=== PATIENT | female | born 1980 | race Caucasian/White ===

== ENCOUNTER 2020-01-03 13:34 | Emergency (ER) | payer BC, SELFPAY ==
[2020-01-03 14:03] VITALS: BP 118/64; PULSE 90; RESP 16; TEMP 37.4; O2SAT 100
--- NOTE | 2020-01-03 14:04 | ED.GENADULT ---
HPI - General Adult General Chief complaint: Upper Respiratory Infection Stated complaint: Sore throat/cough Time Seen by Provider: 01/03/20 14:15 Source: patient and RN notes reviewed Mode of arrival: ambulatory Limitations: no limitations History of Present Illness HPI narrative: This is a 39 years old female presented office for evaluation of cold symptoms for couple day. Symptoms include runny nose, cough, sore throat, and sneezing. She also reported feeling tired. She took ibuprofen for her symptoms. She concern for COVID, would like a test for it. Denies directed contact with COVID patients. Related Data Home Medications Medication Instructions Recorded Confirmed dextroamphetamine-amphetamine 20 mg PO DAILY 01/03/20 01/03/20 levothyroxine 25 mcg DAILY 01/03/20 01/03/20 Allergies Allergy/AdvReac Type Severity Reaction Status Date / Time sulfamethizole Allergy Unknown Swelling Verified 01/03/20 13:50 of Lip/Tongue/Throat sulfamethoxazole Allergy Unknown LIPS SWELL Verified 09/02/18 17:23 trimethoprim Allergy Unknown Swelling Verified 01/03/20 13:50 of Lip/Tongue/Throat Review of Systems Review of Systems: Narrative: CONSTITUTIONAL: Denies fever, chills ENT: Reports rhinorrhea, congestion, sore throat. Denies ears pain CARDIOVASCULAR: Denies chest pain, palpitation RESPIRATORY: Denies dyspnea, wheezing, cough GASTROINTESTINAL: Denies abdominal pain, nausea, vomiting, diarrhea. GENITOURINARY: Denies urinary symptoms or discharge SKIN: Denies rash MUSCULOSKELETAL: Denies acute back pain NEUROLOGIC: Denies lightheaded All other systems reviewed are negative, except as documented in HPI. [facility] Past Medical History Medical History Kidney stone induced hypertension Seborrhiasis Vulvar cyst Surgical History Surgical History H/O removal of cyst History of abdominoplasty History of back surgery x2 History of breast augmentation History of hysterectomy History of tubal ligation Hx of section x3 Family History Family History Mother Family history of rheumatoid arthritis Social History Social History Smoking status: Never smoker Alcohol intake: current Gender identity (if verbalized by the patient): Female Comments At time of signature, I agree with nursing past medical, surgical, social and family history. There is no relevant family history pertinent to the presenting complaint. Exam Narrative: Exam Narrative: GENERAL: This is a well-nourished, well-developed patient, in no apparent distress. EYES: Sclera clear/white. Vision is grossly intact. EARS: External ears normal, auditory canals clear and without drainage, TMs normal without perforation. Hearing grossly intact. NOSE: External nose normal with no obvious nasal discharge, nares without redness, no rhinorrhea. THROAT: Mucous membranes moist, posterior pharynx clear. NECK: Neck supple, non-tender without lymphadenopathy, masses or thyromegaly. CARDIOVASCULAR: Regular rate and rhythm without murmurs, gallops, or rubs. RESPIRATORY: Clear to auscultation. Breath sounds equal bilaterally. No wheezes, rales, or rhonchi. GASTROINTESTINAL: Abdomen soft, non-tender, nondistended. Bowel sounds are active. No hepato-splenomegaly, or palpable masses. No guarding. SKIN: warm, intact with no suspicious lesions or rash, good texture and turgor. NEURO: awake, alert, and oriented to person, place and time. There were no obvious focal neurologic abnormalities. Steady gait [place] Coma Scale Eye Opening: Spontaneous 4 Imtiaz Coma Scale Motor: Obeys Commands 6 Imitaz Coma Scale Verbal: Oriented 5 Course Vital Signs Vital signs: Vital Signs Temperature 99.3 F 01/03/20 14:03 Pulse Rate
== END 2020-01-03 14:43 | disposition home or self-care (01) ==
PROVIDERS: Emergency Provider Nurse Practitioner; PCP Nurse Practitioner Adult Health
DX: J06.9 Acute upper respiratory infection, unspecified (principal)
CPT/HCPCS: 99213; G0463

== ENCOUNTER 2021-09-07 13:24 | Emergency (ER) | payer OTHER, SELFPAY ==
--- NOTE | ~2021-09-07 | CT_ITS ---
EXAMINATION: CT lumbar spine wo con DATE: 09/07/2021 14:02 INDICATION: Chronic low back pain. TECHNIQUE: Computed tomography (CT) of the lumbar spine was performed without intravenous contrast. A utomated exposure control and iterative reconstruction technique were employed. The dose-length produ ct was 475.71 mGy-cm. COMPARISON: Lumbar spine radiographs 08/22/2015 FINDINGS: There is 6 degrees levocurvature of lumbar spine. There are changes of anterior and posteri or fusion procedures at L5-S1 with interbody devices and pedicle screws. There is bridging interbody bone. Vertebral body heights are normal. There is mildly decreased disc height at L3-L4. The followin g disc levels are specifically discussed: L1-L2: The disc does not extend beyond the endplate margin. There is mild bilateral facet joint osteo arthritis. There is no neural foraminal stenosis. There is no central canal stenosis. L2-L3: The disc does not extend beyond the endplate margin. There is mild bilateral facet joint osteo arthritis. There is no neural foraminal stenosis. There is no central canal stenosis. L3-L4: The disc does not extend beyond the endplate margin. There is mild bilateral facet joint osteo arthritis. There is no neural foraminal stenosis. There is no central canal stenosis. L4-L5: The disc is bulging. There is mild bilateral facet joint osteoarthritis. There is mild bilater al neural foraminal stenosis. There is no central canal stenosis. L5-S1: There is mild bilateral facet joint hypertrophy. There is mild left neural foraminal stenosis. There is mild central canal stenosis. IMPRESSION: 1. Mild lumbar spondylosis. 2. Anterior and posterior fusion procedures at L5-S1. Reviewed, dictated and finalized at location A.
[2021-09-07 13:39] VITALS: BP 134/75; PULSE 89; RESP 16; TEMP 36.5; O2SAT 100
[2021-09-07] MEDS: KETOROLAC (*BKC) 60 MG/2 ML VIAL IM (14:03)
--- NOTE | 2021-09-07 14:27 | ED.BACK ---
HPI - Back Pain/Injury General Chief Complaint: Back Pain/Injury Stated Complaint: severe back pain Time Seen by Provider: 09/07/21 13:26 Source: patient and RN notes reviewed Mode of arrival: ambulatory Limitations: no limitations History of Present Illness MD elicited complaint: back pain Pertinent past history: prior back pain Onset (ago): day(s) (2) Timing: constant Severity: moderate Pain scale (0-10): 7 Similar Symptoms Previously: Yes Quality: dull and aching Radiation: buttocks Exacerbating factors: movement Relieving factors: immobilization Associated symptoms: denies other symptoms Treatments prior to arrival: NSAIDS Work related injury: No Related Data Home Medications Medication Instructions Recorded Confirmed dextroamphetamine-amphetamine 20 mg PO DAILY 01/03/20 09/07/21 levothyroxine 25 mcg DAILY 01/03/20 09/07/21 hydroxychloroquine 200 mg PO BID 09/07/21 09/07/21 Allergies Allergy/AdvReac Type Severity Reaction Status Date / Time sulfamethizole Allergy Unknown Swelling Verified 09/07/21 13:44 of Lip/Tongue/Throat sulfamethoxazole Allergy Unknown LIPS SWELL Verified 09/07/21 13:44 trimethoprim Allergy Unknown Swelling Verified 09/07/21 13:44 of Lip/Tongue/Throat Review of Systems Review of Systems: All systems reviewed & are unremarkable except as noted in HPI and below PMFSH Past Medical History Medical History Kidney stone induced hypertension Sciatica Seborrhiasis Vulvar cyst Surgical History Surgical History H/O removal of cyst History of abdominoplasty History of back surgery x2 History of breast augmentation History of hysterectomy History of tubal ligation Hx of section x3 Family History Family History Mother Family history of rheumatoid arthritis Social History Social History Smoking status: Never smoker Alcohol intake: current Gender identity (if verbalized by the patient): Female Exam Const: General: no acute distress and alert Orientation/consciousness: patient oriented x3 Limitations: no limitations HENMT: Ears: external ears normal, TM's normal bilaterally and EAC's normal General nose exam: Normal external nose present and Normal nares present Face and sinus: normal facial exam and sinuses nontender Mouth: Yes moist mucous membranes Eyes: Conjunctivae: conjunctivae normal Pupils: Equal, round and reactive pupils present EOM: EOMs intact bilaterally Neck: Neck: normal visual inspection Chest: Chest palpation & inspection: normal inspection of the chest Resp: Effort & Inspection: normal respiratory effort Auscultation: clear to auscultation bilaterally Cardio: Rate: regular rate Rhythm: regular rhythm GI: GI Palp: Yes Soft to palpation and No Tenderness to palpation present (GI) Auscultation: normal bowel sounds : General: Yes no CVA tenderness Back/Spine/Pelvis: Back: no CVA tenderness Skin: General skin exam: normal color Neuro: General: patient oriented x3, moves all extremities, no meningeal signs, no focal motor deficits and CN's II-XI intact bilaterally Extrem: General: normal to inspection and no pedal edema Psych: Appearance: grossly normal and well kempt Mental Status: mental status grossly normal Affect: normal affect Attitude: cooperative Thought content: Yes Normal thought content present Course Course Emergency Course: Pt is stable in the ED. less painful. Reevaluation(s) Reevaluation #1: VSS Date: 09/20/21 Time: 13:47 Vital Signs Vital signs: Vital Signs Temperature 36.5 C 09/07/21 13:39 Pulse Rate 89 09/07/21 13:39 Respiratory Rate 16 09/07/21 13:39 Blood Pressure 134/75 09/07/21 13:39 Pulse Oximetry 100 09/07/21 13:39 Temp
[2021-09-07 14:50] VITALS: BP 131/87; PULSE 75; RESP 16; TEMP 37.1; O2SAT 100
== END 2021-09-07 15:07 | disposition home or self-care (01) ==
PROVIDERS: Emergency Provider Emergency Medicine; PCP Nurse Practitioner Adult Health
DX: M54.30 Sciatica, unspecified side (principal)
CPT/HCPCS: 72131; 96372; 99284; J1885

== ENCOUNTER 2021-11-08 10:22 | Emergency (ER) | payer OTHER, SELFPAY ==
--- NOTE | ~2021-11-08 | US_ITS ---
EXAMINATION: US pelvic complete w TV DATE: 11/08/2021 12:35 INDICATION: Right lower quadrant pain Comparison:No prior studies for comparison. TECHNIQUE: Multiple transabdominal and endovaginal sonographic images of the pelvis performed. FINDINGS: Uterus is surgically absent. There are right ovarian cyst, largest measuring 3.6 cm. Left o vary is surgically absent. The right ovary measures and the left ovary measures . There are small follicles in each ovary. Norm al doppler signal in both ovaries. There is no free fluid in the pelvis. There are no abnormal masses seen on either side. IMPRESSION: 1. Right ovarian cysts, largest measuring 3.6 cm. Reviewed, dictated and finalized at location B.
--- NOTE | ~2021-11-08 | CT_ITS ---
EXAMINATION: CT abdomen pelvis wo con DATE: 11/08/2021 11:08 INDICATION: Right lower quadrant abdominal pain, nausea and emesis TECHNIQUE: Computed tomography (CT) of the abdomen and pelvis was performed without intravenous contr ast. Automated exposure control and iterative reconstruction technique were employed. Exam dose: 303 .96 mGy-cm total exam DLP. COMPARISON: None. FINDINGS: Bilateral breast implants. The lung bases are clear. Normal heart size. No pericardial or p leural effusion. Hepatic steatosis. The liver, gallbladder, spleen, pancreas and bile ducts and pancreatic duct are ot herwise unremarkable. Normal morphology of the adrenal glands. No renal mass lesion or urinary tract calculus or hydroureteronephrosis. The urinary bladder is unrem arkable. Status post hysterectomy. Right ovarian enlargement Measuring up to approximately 3.4 x 5 cm, with cyst measuring up to 3.6 cm dimension. Ovarian torsion cannot be excluded. Consider pelvic ultrasound examination.. Normal appendix. There are scattered diverticula of the left colon; no CT evidence of diverticulitis. No bowel obstruction, bowel wall thickening, pneumatosis or intraperitoneal free air. Very small fat-containing umbilical hernia. Status post bilateral posterior surgical fusion at L5-S1 by pedicle screws and rods. No suspicious osteolytic or osteoblastic lesions. IMPRESSION: Right ovarian enlargement with up to 3.6 cm cyst. Consider right ovarian torsion. Pelvic ultrasound examination may be of benefit. Status post hysterectomy Diverticulosis of left colon; no evidence of diverticulitis Normal appendix Hepatic steatosis Bilateral breast implants Reviewed, dictated and finalized at Location A. Reviewed, dictated and finalized at location A. IMPRESSION: Right ovarian enlargement with up to 3.6 cm cyst. Consider right o varian torsion. Pelvic ultrasound examination may be of benefit. Status post hysterectomy Diverticulosis of left colon; no evidence of diverticulitis Normal appendix Hepatic steatosis Bilateral breast implants
[2021-11-08 10:24] VITALS: BP 140/90; PULSE 54; RESP 16; TEMP 36.4; O2SAT 100
--- NOTE | 2021-11-08 10:32 | ED.ABDPAIN ---
HPI - Abdominal Pain General Chief Complaint: Abdominal Pain Stated Complaint: RLQ pain Time Seen by Provider: 11/08/21 10:27 History of Present Illness HPI narrative: 41-year-old female presents to the emergency room with a sudden onset of right lower quadrant pain that radiates into the right flank. Patient states she does have a history of kidney stones but this feels different. Patient states walking around and moving makes the pain worse. Patient denies any urinary symptoms. Patient states the pain was associated with nausea and the inability to get comfortable. Related Data Home Medications Medication Instructions Recorded Confirmed dextroamphetamine-amphetamine ER 20 mg PO DAILY 01/03/20 09/07/21 20 mg 24hr capsule,extend release levothyroxine 25 mcg tablet 25 mcg DAILY 01/03/20 09/07/21 hydroxychloroquine 200 mg tablet 200 mg PO BID 09/07/21 09/07/21 Allergies Allergy/AdvReac Type Severity Reaction Status Date / Time sulfamethizole Allergy Unknown Swelling Verified 11/08/21 13:02 of Lip/Tongue/Throat sulfamethoxazole Allergy Unknown LIPS SWELL Verified 11/08/21 13:02 trimethoprim Allergy Unknown Swelling Verified 11/08/21 13:02 of Lip/Tongue/Throat Review of Systems Review of Systems: CONSTITUTIONAL: Denies fever, chills, or sweats. EYES: Denies visual changes, redness, or discharge. ENT: Denies rhinorrhea, congestion, sore throat, or otalgia. CARDIOVASCULAR: Denies chest pain, palpitations, or edema. RESPIRATORY: Denies cough or dyspnea. GASTROINTESTINAL: Reports abdominal pain, nausea, vomiting GENITOURINARY: Denies dysuria or hematuria. SKIN: Denies rash or itching. MUSCULOSKELETAL: Denies back pain, joint pain, or myalgia. NEUROLOGIC: Denies headache, numbness, dizziness, or weakness. PSYCHIATRIC: Denies anxiety or depression. [facility] Past Medical History Medical History Kidney stone induced hypertension Sciatica Seborrhiasis Vulvar cyst Surgical History Surgical History H/O removal of cyst History of abdominoplasty History of back surgery x2 History of breast augmentation History of hysterectomy History of tubal ligation Hx of section x3 Family History Family History Mother Family history of rheumatoid arthritis Social History Social History Smoking status: Never smoker Alcohol intake: current Gender identity (if verbalized by the patient): Female Exam Narrative: GENERAL: Well-appearing, well-nourished, and in no acute distress. HEAD: Normocephalic, atraumatic. EYES: PERRLA and EOMI. CHEST: Clear to auscultation. No respiratory distress. No wheezes rales or rhonchi HEART: Regular rate and rhythm. No murmur heard. Normal peripheral pulses. ABDOMEN: Soft, right lower quadrant tenderness, nondistended, normal active bowel sounds. No CVA tenderness. Positive heelstrike, positive psoas and obturator signs, McBurney's point tenderness EXTREMITIES: Normal range of motion. No edema. SKIN: Warm, dry, no rash. NEURO: No focal deficits. Alert and oriented x3. PSYCH: Normal mood and affect. Course Vital Signs Vital signs: Vital Signs Temperature 36.4 C L 11/08/21 10:24 Pulse Rate 54 L 11/08/21 10:24 Respiratory Rate 16 11/08/21 10:24 Blood Pressure 140/90 11/08/21 10:24 Pulse Oximetry 100 11/08/21 10:24 Temperature 36.4 C L 11/08/21 10:24 Pulse Rate 54 L 11/08/21 10:24 Respiratory Rate 16 11/08/21 10:24 Blood Pressure 140/90 11/08/21 10:24 Pulse Oximetry 100 11/08/21 10:24 MDM - Abdominal Pain MDM Narrative Medical decision making narrative: 41-year-old female presents with lower abdominal/pelvic pain with a sudden onset of this morning. Abdominal exam was without peritone
[2021-11-08] MEDS: SODIUM CHLORIDE 0.9% IV 1,000 ML 999 ML IV CONT (10:57)
[2021-11-08] MEDS: ONDANSETRON INJ 4 MG/2 ML VIAL IV PUSH (10:57)
[2021-11-08] MEDS: MORPHINE SULFATE (*CRX) 4 MG/ML INJ IV PUSH ×2 (10:57→12:36)
[2021-11-08 11:04] LABS: Basophils Percent Auto 0.6 % (0.2-1.2); Eosinophils Absolute Auto 0.1 K/mm3 (0-0.3); Eosinophils Percent Auto 0.8 % (0-4.4); Hematocrit 38.6 % (37.0-47.0); Hemoglobin 12.5 g/dL (12.0-15.0); Immature Granulocyte Absolute 0.02 K/mm3 (0.00-0.031); Immature Granulocyte Percent A 0.3 % (0-0.5); Lymphocytes Absolute Auto 1.28 K/mm3 (0.9-3.2); Lymphocytes Percent Auto 17.7 % (18.3-44.2); Mean Corpuscular HGB Conc 32.4 g/dl (32-36); Mean Corpuscular Hemoglobin 28.3 pg (26-34); Mean Corpuscular Volume 87.5 fl (80-100); Mean Platelet Volume 9.6 fl (7.4-10.4); Monocytes Absolute Auto 0.2 K/mm3 (0.1-0.6); Neutrophils Absolute Auto 5.6 K/mm3 (1.3-6.7); Neutrophils Percent Auto 77.6 % (45.5-73.1); Platelet Count Result 295 k/mm3 (150-375); Red Blood Count 4.41 M/mm3 (4.2-5.4); Red Cell Distribution Width 12.7 % (11.5-14.5); White Blood Count 7.2 K/mm3 (4.5-10.0)
[2021-11-08 11:20] LABS: Alanine Aminotransferase 21 U/L (6-35); Albumin Level 4.7 g/dL (3.5-5.1); Alkaline Phosphatase 77 U/L (38-126); Anion Gap 9 mmol/L (8-16); Aspartate Amino Transferase 29 U/L (14-36); Bilirubin,Total 0.6 mg/dL (0.2-1.3); Blood Urea Nitrogen 10 mg/dL (7-17); Calcium 8.9 mg/dL (8.4-10.2); Carbon Dioxide 23 mmol/L (22-30); Chloride 104 mmol/L (98-107); Estimated CRCL calculation 99 ml/min; Estimated Glomerular Filt Rate > 60; Glucose 147 mg/dL (65-110); Lipase 112 U/L (23-300); Potassium 3.5 mmol/L (3.4-5.0); Sodium 136 mmol/L (137-145)
--- NOTE | 2021-11-08 12:22 | PC.NURSE ---
Pt off unit to US.
[2021-11-08 12:39] VITALS: O2SAT 100
[2021-11-08 12:40] VITALS: BP 133/78; O2SAT 100
[2021-11-08 12:50] VITALS: O2SAT 100
[2021-11-08 12:58] LABS: Appearance Urine Clear (Clear); Bilirubin Urine Negative (Negative); Blood Urine Negative (Negative); Color Urine Yellow (Yellow); Glucose Urine UA Negative (Negative); Ketones Urine 3+ mg/dL (Negative); Leukocyte Esterase Ur Negative LEU/UL (Negative); Nitrate Urine Negative (Negative); Protein Urine Negative (Negative); Specific Grav Ur 1.025 (1.001-1.035); Urobilinogen Urine 0.2 mg/dL (<2.0)
[2021-11-08 13:00] VITALS: O2SAT 100
[2021-11-08 13:02] VITALS: BP 130/71; O2SAT 98
[2021-11-08 13:06] LABS: Mucus Urine Few /lpf; RBC Urine 0-2 /hpf (0-2); Squamous Epithelial Cell Urine Few /hpf (Few); WBC Urine 0-3 /hpf
[2021-11-08 13:13] LABS: Add Urine Microscopic? YES
== END 2021-11-08 13:40 | disposition home or self-care (01) ==
PROVIDERS: Family Medicine; Emergency Provider Nurse Practitioner Family; PCP Nurse Practitioner Adult Health
DX: N83.201 Unspecified ovarian cyst, right side (principal); Z87.442 Personal history of urinary calculi
CPT/HCPCS: 36415; 74176; 76830; 76856; 80053; 81001; 83690; 85025; 96361; 96374; 96375; 96376; 99284; J2270; J2405; J7030

== ENCOUNTER 2021-11-10 09:53 | Outpatient (CLI) | payer BC, SELFPAY | END 2021-11-10 09:54 | disposition home or self-care (01) | LOC: ANHSURGERY 10:00 | PROVIDERS: PCP Nurse Practitioner Adult Health; Visit Provider Obstetrics & Gynecology | DX: R10.2 Pelvic and perineal pain (principal); Z01.818 Encounter for other preprocedural examination | CPT/HCPCS: 36415; 86850; 86900; 86901 ==

== ENCOUNTER 2021-11-13 02:27 | Day surgery (SDC) | payer BC, SELFPAY ==
[2021-11-09 15:22] VITALS: BMI 23.3
--- NOTE | 2021-11-09 15:35 | PC.NURSE ---
Report to the Outpatient Waiting Room, entrance under the green pavilion located off [facility], at time 11:00 on date 11/13/21. OR Time: 1:00. - You and your visitor will be asked a series of questions to screen for COVID 19 for your protection. - Only one visitor is allowed at this time. - The patient visitor is requested to leave or wait in car when not with patient. - A mask is required within the hospital. Patients may have clear liquids (water, carbonated beverages, clear teas, apple juice) until 3 hours prior to surgery (10:00) with a maximum of 20 ounces. - No food from midnight until time of surgery Take the following medications with a SIP of water the morning of surgery: LEVOTHYROXINE, PAIN PILL (IF NEEDED) Medications to discontinue per physician: N/A Date to take last dose: N/A Please no make-up, nail samoan, hairspray, perfume, deodorant, or body powder the day of surgery. No jewelry (including any body piercings) or valuables the day of surgery, leave them at home. Please take a shower or bath the night before, or the morning of, surgery with an antibacterial soap. Wear comfortable, loose fitting clothing. - Jewelry must be removed prior to entering the operating room. Rings and piercings that are not removed may be cut off. - The hospital will not accept responsibility for valuables. - Please leave all valuables, including medications, at home the day of surgery. If you are going home after surgery, a licensed truck driver helper must drive you home. - NO public transportation without another adult. - We recommend that an adult stay with you for 24 hours following discharge. - We also recommend that you do not drive, make important decision, drink alcoholic beverages, or take any drugs that were not prescribed by your health care provider for at least 24 hours after your discharge time. Follow any additional instructions given to you from your surgeon. If you or anyone in your household have experienced Covid symptoms in the past week, please notify your surgeon or the nurse liaison at the phone number below for possible testing. Telephone instructions given to PT - CHOLO NOGUERA and asked if any additional questions and then verbalized understanding. Patient advised to call surgeon office or pre surgery nurse liaison [phone] if any additional questions.
[2021-11-13] VITALS (9 sets, daily range): BP systolic 100–137; BP diastolic 53–84; PULSE 50–95; RESP 10–16; TEMP 36.2–37.7; O2SAT 96–100
--- NOTE | 2021-11-13 06:26 | P.HP_ITS ---
H&P: HPI History of Present Illness Date/Time: 11/13/21 06:26 Chief Complaint: Right pelvic pain Narrative: this is a 41-year-old female status post hysterectomy left salpingo- oophorectomy admitted for right oophorectomy secondary to complex right ovarian cyst. Her pain is unrelenting and severe. Risks and benefits reviewed. She understands this will make her permanently menopausal and had all questions an swered concerning this issue PMFSH Past Medical History Medical History Kidney stone induced hypertension Sciatica Seborrhiasis Vulvar cyst Surgical History Surgical History H/O removal of cyst History of abdominoplasty History of back surgery x2 History of breast augmentation History of hysterectomy History of tubal ligation Hx of section x3 Family History Family History Mother Family history of rheumatoid arthritis Social History Social History Smoking status: Never smoker Alcohol intake: never Substance use: never Substance use type: does not use Living arrangements: with family Gender identity (if verbalized by the patient): Female Spiritual care concerns: No Meds Home Medications and Allergies Home Medications Medication Instructions Recorded Confirmed Type dextroamphetamine-amphetamine ER 20 mg PO DAILY 01/03/20 11/09/21 History 20 mg 24hr capsule,extend release levothyroxine 25 mcg tablet 25 mcg DAILY 01/03/20 11/09/21 History hydroxychloroquine 200 mg tablet 200 mg PO BID 09/07/21 11/09/21 History ibuprofen 800 mg tablet 800 mg PO TID #20 tabs 09/07/21 11/09/21 Rx hydrocodone 5 mg-acetaminophen 325 1 tablet PO Q8H PRN pain #15 tabs 11/08/21 11/09/21 Rx mg tablet ondansetron 4 mg disintegrating 4 mg PO Q8H #14 tabs 11/08/21 11/09/21 Rx tablet Allergies Allergy/AdvReac Type Severity Reaction Status Date / Time sulfamethizole Allergy Unknown Swelling Verified 11/09/21 15:19 of Lip/Tongue/Throat sulfamethoxazole Allergy Unknown LIPS SWELL Verified 11/09/21 15:19 trimethoprim Allergy Unknown Swelling Verified 11/09/21 15:19 of Lip/Tongue/Throat Exam Const: General: cooperative and healthy appearing Nutritional Appearance: average body habitus Orientation/consciousness: oriented to person : Speculum Exam - Cervix: Cervix absent OB/external & speculum: external exam normal Assessment and Plan Assessment and plan (1) Complex cyst of right ovary: Code(s): N83.291 - Other ovarian cyst, right side Status: Acute Plan laparoscopic right salpingo-oophorectomy
--- NOTE | 2021-11-13 06:29 | WPDHPUPDATE1 ---
History and Physical Update Update Date/Time: 11/13/21 06:29 History and Physical has been reviewed, including an updated exam of the patient. There are NO changes in the patient's condition. Risks, benefits, and alternatives have been discussed and questions answered. Patient agrees to proceed with procedure.
--- NOTE | 2021-11-13 07:33 | P.PNAN_ITS ---
Anes - Initial Pre Proc Eval Procedure: Operation Date: 11/13/21 13:00 Proposed Procedures p Laparoscopic Right Salpingo Oophorectomy - Javi Mas MD Date/Time: 11/13/21 07:33 Surgeon: Javi Mas MD Pre Op Diagnosis: right complex cyst, pelvic pain Patient Data Age: 41 Gender: F Height: 1.68 m Weight: 65.77 kg Allergies Allergy/AdvReac Type Severity Reaction Status Date / Time sulfamethizole Allergy Unknown Swelling Verified 11/09/21 15:19 of Lip/Tongue/Throat sulfamethoxazole Allergy Unknown LIPS SWELL Verified 11/09/21 15:19 trimethoprim Allergy Unknown Swelling Verified 11/09/21 15:19 of Lip/Tongue/Throat Home Medications Medication Instructions Recorded Confirmed Type dextroamphetamine-amphetamine ER 20 mg PO DAILY 01/03/20 11/09/21 History 20 mg 24hr capsule,extend release levothyroxine 25 mcg tablet 25 mcg DAILY 01/03/20 11/09/21 History hydroxychloroquine 200 mg tablet 200 mg PO BID 09/07/21 11/09/21 History ibuprofen 800 mg tablet 800 mg PO TID #20 tabs 09/07/21 11/09/21 Rx hydrocodone 5 mg-acetaminophen 325 1 tablet PO Q8H PRN pain #15 tabs 11/08/21 11/09/21 Rx mg tablet ondansetron 4 mg disintegrating 4 mg PO Q8H #14 tabs 11/08/21 11/09/21 Rx tablet Results Review: All pre-operative results and documents have been reviewed as part of the pre- operative evaluation. [facility] Past Medical History Medical History (Updated 11/13/21 @ 07:33 by Osmani Croley MD) ADHD (attention deficit hyperactivity disorder) Hypothyroid Kidney stone induced hypertension Sciatica Seborrhiasis Vulvar cyst Surgical History Surgical History H/O removal of cyst History of abdominoplasty History of back surgery x2 History of breast augmentation History of hysterectomy History of tubal ligation Hx of section x3 Family History Family History Mother Family history of rheumatoid arthritis Social History Social History Smoking status: Never smoker Alcohol intake: never Substance use: never Substance use type: does not use Living arrangements: with family Gender identity (if verbalized by the patient): Female Spiritual care concerns: No Anes - Eval Final PreProcedure Day of Procedure 11/13/21 07:33 Results Review: All pre-operative results and documents have been reviewed as part of the pre- operative evaluation. Informed Consent: The patient's anesthetic plan and its attendant risks and benefits were discussed with the patient/family/POA. Questions were solicited and answers provided to the satisfaction of the patient/family/POA.
[2021-11-13] MEDS: ACETAMINOPHEN 500 MG TABLET 1000 MG PO (12:15)
[2021-11-13] MEDS: LACTATED RINGERS 1,000 ML 30 ML IV CONT (12:25)
[2021-11-13] MEDS: KETOROLAC 15 MG/ML VIAL (*BKC) IV PUSH (12:30)
--- NOTE | 2021-11-13 12:41 | WPDANESEPPF ---
Anes - Initial Pre Proc Eval Procedure: Operation Date: 11/13/21 13:45 Proposed Procedures p Laparoscopic Right Salpingo Oophorectomy - Javi Mas MD Date/Time: 11/13/21 12:41 Surgeon: Javi Mas MD Pre Op Diagnosis: right complex cyst, pelvic pain Patient Data Age: 41 Gender: F Height: 1.68 m Weight: 65.3 kg Last Vital Signs Temp 37.7 C H 11/13/21 12:32 Pulse 86 11/13/21 12:32 Resp 16 11/13/21 12:32 BP 116/71 11/13/21 12:32 Pulse Ox 100 11/13/21 12:32 O2 Del Method Room Air 11/13/21 12:32 Allergies Allergy/AdvReac Type Severity Reaction Status Date / Time sulfamethizole Allergy Unknown Swelling Verified 11/09/21 15:19 of Lip/Tongue/Throat sulfamethoxazole Allergy Unknown LIPS SWELL Verified 11/09/21 15:19 trimethoprim Allergy Unknown Swelling Verified 11/09/21 15:19 of Lip/Tongue/Throat Home Medications Medication Instructions Recorded Confirmed Type dextroamphetamine-amphetamine ER 20 mg PO DAILY 01/03/20 11/09/21 History 20 mg 24hr capsule,extend release levothyroxine 25 mcg tablet 25 mcg DAILY 01/03/20 11/09/21 History hydroxychloroquine 200 mg tablet 200 mg PO BID 09/07/21 11/09/21 History ibuprofen 800 mg tablet 800 mg PO TID #20 tabs 09/07/21 11/09/21 Rx hydrocodone 5 mg-acetaminophen 325 1 tablet PO Q8H PRN pain #15 tabs 11/08/21 11/09/21 Rx mg tablet ondansetron 4 mg disintegrating 4 mg PO Q8H #14 tabs 11/08/21 11/09/21 Rx tablet Patient hx anesthesia problems: none Family hx anesthesia problems: none Results Review: All pre-operative results and documents have been reviewed as part of the pre-operative evaluation. [facility] Past Medical History Medical History (Updated 11/13/21 @ 07:33 by Osmani Corley MD) ADHD (attention deficit hyperactivity disorder) Hypothyroid Kidney stone induced hypertension Sciatica Seborrhiasis Vulvar cyst Surgical History Surgical History H/O removal of cyst History of abdominoplasty History of back surgery x2 History of breast augmentation History of hysterectomy History of tubal ligation Hx of section x3 Family History Family History Mother Family history of rheumatoid arthritis Social History Social History Smoking status: Never smoker Alcohol intake: never Substance use: never Substance use type: does not use Living arrangements: with family Gender identity (if verbalized by the patient): Female Spiritual care concerns: No Anes - Eval Final PreProcedure Day of Procedure 11/13/21 12:41 Patient weight: normal Heart: regular rate and rhythm Lungs: clear to auscultation Airway: Mallampati scale class 1 Neurological: alert and oriented Last oral intake: >/= 8 hours ASA classification: III Emergent: no Anesthetic plan: proceed Anesthesia type and monitoring: general ETT and standard monitoring Results Review: All pre-operative results and documents have been reviewed as part of the pre-operative evaluation. Informed Consent: The patient's anesthetic plan and its attendant risks and benefits were discussed with the patient/family/POA. Questions were solicited and answers provided to the satisfaction of the patient/family/POA.
[2021-11-13] MEDS: ceFAZolin 2 GM/D5W 50 ML 2 GM/50 ML BAG IVPB (13:40)
--- NOTE | 2021-11-13 14:35 | P.OP_ITS ---
Procedure Note - Detailed Date of Procedure 11/13/21 Pre-op Diagnosis right complex cyst, pelvic pain Post-op Diagnosis Other Procedure Performed Laparoscopic right salpingo-oophorectomy Surgeon Javi Mas MD Anesthesia General Indications Is a 41-year-old female status post hysterectomy by and left salpingo- oophorectomy with a complex right cyst Findings Absent left ovary and tube absent uterus torsion and was seen Description of Procedure The patient was prepped draped in the sterile fashion placed in dorsal lithotomy position. Under excellent general trach anesthesia weighted speculum placed in posterior vagina bladder symptoms clear urine and a weighted speculum. A sponge stick was placed to manipulate the vagina. Gloves were changed. A supraumbilical incision made the Veress needle passed in the abdomen. Filled with CO2 gas to 15mm Hg. 5mm trocar advanced in the abdomen under direct visualization seen. Patient placed in Trendelenburg suprapubic incision. The 5mm trocar advanced under direct visualization assuring no injury. A large complex right ovarian cyst consistent with torsion was noted. A right lower quadrant incision made the 8mm trocar advanced under direct visualization assuring no injury. The fallopian tube and ovary were untwisted and the infundibulopelvic structure skeletonized clamped with the LigaSure and then placed in an Endo-Catch removed through the right lower quadrant and piecemeal. Irrigation was undertaken until clear excellent hemostasis was seen. Patient after the gas was removed from the abdomen. The trocars removed and the incisions closed with 4 Monocryl and glue. Patient was awakened and went to recovery in satisfactory condition. All sponge, needle, instrument counts were correct. There were no immediate complications Estimated Blood Loss 25 Drains No Packing No Pathology Yes Complications No immediate complications Condition Stable Disposition PACU
--- NOTE | 2021-11-13 15:15 | SUR.PHASEI ---
oral airway removed at 1515
[2021-11-13] MEDS: fentaNYL CITRATE INJ (*CRX) 100 MCG/2 ML VIAL 25 MCG IV PUSH (15:31)
[2021-11-13] MEDS: oxyCODONE HCL (*CRX) 5 MG TAB IR PO (16:22)
== END 2021-11-13 16:55 | disposition home or self-care (01) ==
PROVIDERS: PCP Nurse Practitioner Adult Health; Visit Provider Obstetrics & Gynecology
PROC: (CPT 49320; principal; 2021-11-13 13:45)
DX: N83.291 Other ovarian cyst, right side (principal); R10.2 Pelvic and perineal pain; E03.9 Hypothyroidism, unspecified; F90.9 Attention-deficit hyperactivity disorder, unspecified type
CPT/HCPCS: 58661; 36415; 86850; 86900; 86901; 88305; A9270; J0690; J1100; J1885; J2250; J2405; J2704; J3010; J7120

== ENCOUNTER 2021-12-11 18:38 | Emergency (ER) | payer BC, SELFPAY ==
[2021-12-11 18:49] VITALS: BP 142/72; PULSE 95; RESP 20; TEMP 36.6; O2SAT 99
--- NOTE | 2021-12-11 19:46 | ED.SKABFB ---
HPI - Skin/Abscess/Foreign Bdy General Chief complaint: Skin/Abscess/Foreign Body <Mayra Morejon PA-C - Last Filed: 12/11/21 19:59> Stated complaint: hematoma in birthmark <KAVON Ramirez Last Filed: 12/11/21 19:59> Time Seen by Provider: 12/11/21 19:05 <KAVON Ramirez Last Filed: 12/11/21 19:59> Source: patient <KAVON Ramirez Last Filed: 12/11/21 19:59> Mode of arrival: ambulatory <KAVON Ramirez Last Filed: 12/11/21 19:59> Limitations: no limitations <KAVON Ramirez Last Filed: 12/11/21 19:59> History of Present Illness HPI narrative: This is a 41 year old female that presents to the ER for a lesion on the left cheek. Noted over the last couple of weeks. Reports she has a birthmark in the area and had a similar occurrence a couple of years ago. She had the lesion incised in the ER at that time. Reports the lesion bleeds with little irritation. Denies fever, erythema, or warmth. <KAVON Ramirez Last Filed: 12/11/21 19:59> Related Data Home medications: Home Medications Medication Instructions Recorded Confirmed dextroamphetamine-amphetamine ER 20 mg PO DAILY 01/03/20 11/09/21 20 mg 24hr capsule,extend release levothyroxine 25 mcg tablet 25 mcg DAILY 01/03/20 11/09/21 hydroxychloroquine 200 mg tablet 200 mg PO BID 09/07/21 11/09/21 <KAVON Ramirez Last Filed: 12/11/21 19:59> Allergies/Adverse reactions: Allergies Allergy/AdvReac Type Severity Reaction Status Date / Time sulfamethizole Allergy Unknown Swelling Verified 11/09/21 15:19 of Lip/Tongue/Throat sulfamethoxazole Allergy Unknown LIPS SWELL Verified 11/09/21 15:19 trimethoprim Allergy Unknown Swelling Verified 11/09/21 15:19 of Lip/Tongue/Throat <KAVON Ramirez Last Filed: 12/11/21 19:59> Review of Systems Review of Systems: CONSTITUTIONAL: Denies fever SKIN: Denies rash <Mayra Morejon PA-C - Last Filed: 12/11/21 19:59> All systems reviewed & are unremarkable except as noted in HPI and below <Mayra Morejon PA-C - Last Filed: 12/11/21 19:59> PMFSH Past Medical History Medical History: Medical History (Updated 12/12/21 @ 00:00 by Fela Ndiaye) ADHD (attention deficit hyperactivity disorder) Hypothyroid Kidney stone induced hypertension Sciatica Seborrhiasis Vulvar cyst <KAVON Ramirez Last Filed: 12/11/21 19:59> Surgical History Surgical History: Surgical History H/O removal of cyst History of abdominoplasty History of back surgery x2 History of breast augmentation History of hysterectomy History of tubal ligation Hx of section x3 <Mayra Morejon PA-C - Last Filed: 12/11/21 19:59> Family History Family History: Family History Mother Family history of rheumatoid arthritis <Mayra Morejon PA-C - Last Filed: 12/11/21 19:59> Social History Social History: Social History Smoking status: Never smoker Alcohol intake: never Substance use: never Substance use type: does not use Gender identity (if verbalized by the patient): Female Spiritual care concerns: No <KAVON Ramirez Last Filed: 12/11/21 19:59> Exam Narrative: GENERAL: Well-appearing, well-nourished, and in no acute distress. HEAD: Normocephalic, atraumatic. EYES: EOMI. EXTREMITIES: Normal range of motion. No edema. SKIN: Warm, dry. Small circular area (1cm) that appears to be a hemangioma noted in patient's birthmark to the left cheek NEURO: No focal deficits. Alert and oriented x3. PSYCH: Normal mood and affect <Mayra Morejon PA-C - Last Filed: 12/11/21 19:59> Course WATCH ASSEMBLER/PA Physician Supervision I did not see this patient but the care plan was discuss
== END 2021-12-11 20:33 | disposition home or self-care (01) ==
PROVIDERS: Emergency Provider Emergency Medicine; PCP Nurse Practitioner Adult Health
DX: Q82.5 Congenital non-neoplastic nevus (principal); D22.39 Melanocytic nevi of other parts of face; E03.9 Hypothyroidism, unspecified; F90.9 Attention-deficit hyperactivity disorder, unspecified type; Z87.442 Personal history of urinary calculi
CPT/HCPCS: 99281

== ENCOUNTER 2022-01-04 17:26 | Emergency (ER) | payer BC, SELFPAY ==
[2022-01-04 17:28] VITALS: BP 143/86; PULSE 81; RESP 18; TEMP 36.3; O2SAT 100
--- NOTE | 2022-01-04 17:51 | ED.GENADULT ---
HPI - General Adult General Chief complaint: Wound/Laceration Stated complaint: sore on face Time Seen by Provider: 01/04/22 17:41 History of Present Illness HPI narrative: this is a 41-year-old female presenting to ED due to a mass on the left side of her face. Patient has had a birthmark there from . However several weeks ago she started to get a slightly raised bump that is now having occasional bleeding. The patient has been seen here previously for this and was instructed follow up with a plastic surgeon or fundraising manager. She has made appointment is not until late February. The patient is says that the lump is interfering with her activities of daily living this is unsightly wound on her face. She denies any surrounding erythema, swelling or purulent discharge. Related Data Home Medications Medication Instructions Recorded Confirmed dextroamphetamine-amphetamine ER 20 mg PO DAILY 01/03/20 11/09/21 20 mg 24hr capsule,extend release levothyroxine 25 mcg tablet 25 mcg DAILY 01/03/20 11/09/21 hydroxychloroquine 200 mg tablet 200 mg PO BID 09/07/21 11/09/21 Allergies Allergy/AdvReac Type Severity Reaction Status Date / Time sulfamethizole Allergy Unknown Swelling Verified 11/09/21 15:19 of Lip/Tongue/Throat sulfamethoxazole Allergy Unknown LIPS SWELL Verified 11/09/21 15:19 trimethoprim Allergy Unknown Swelling Verified 11/09/21 15:19 of Lip/Tongue/Throat Review of Systems Review of Systems: CONSTITUTIONAL: Denies night sweats. EYES: No eye pain ENT: Denies rhinorrhea CARDIOVASCULAR: Denies palpitations RESPIRATORY: Denies hemoptysis GASTROINTESTINAL: Denies hematemesis GENITOURINARY: Denies hematuria. SKIN: Denies rash MUSCULOSKELETAL: Denies myalgia. NEUROLOGIC: Denies weakness. PSYCHIATRIC: Denies delusions PMFSH Past Medical History Medical History ADHD (attention deficit hyperactivity disorder) Hypothyroid Kidney stone induced hypertension Sciatica Seborrhiasis Vulvar cyst Surgical History Surgical History H/O removal of cyst History of abdominoplasty History of back surgery x2 History of breast augmentation History of hysterectomy History of tubal ligation Hx of section x3 Family History Family History Mother Family history of rheumatoid arthritis Social History Social History Smoking status: Never smoker Alcohol intake: never Substance use: never Substance use type: does not use Gender identity (if verbalized by the patient): Female Spiritual care concerns: No Exam Narrative: APPEARANCE: No apparent distress. Head atraumatic. EYES: PERRLA/EOMI, NOSE: Normal no drainage NECK: Supple, Trachea midline RESPIRATORY: CTAB, No increased work of breathing. CARDIOVASCULAR: S1S2 appreciated ABDOMINAL: Soft, nontender, nondistended, MUSCULOSKELETAl: No obvious deformities NEURO: Alert. Moving 4/4 extremities SKIN: Patient has a subcentimeter mass over her left jaw line in the center for birthmark. It has minor bleeding. There is no surrounding erythema or induration indicating infection. PSYCHIATRIC: Normal affect Course Vital Signs Vital signs: Vital Signs Temperature 97.4 F L 01/04/22 17:28 Pulse Rate 81 01/04/22 17:28 Respiratory Rate 18 01/04/22 17:28 Blood Pressure 143/86 H 01/04/22 17:28 Pulse Oximetry 100 01/04/22 17:28 Oxygen Delivery Room Air 01/04/22 17:28 Temperature 97.4 F L 01/04/22 17:28 Pulse Rate 81 01/04/22 17:28 Respiratory Rate 18 01/04/22 17:28 Blood Pressure 143/86 H 01/04/22 17:28 Pulse Oximetry 100 01/04/22 17:28 Oxygen Delivery Room Air 01/04/22 17:28 Medical Decision Making MDM Narrative Medical decision making narrative:
== END 2022-01-04 18:14 | disposition home or self-care (01) ==
LOC: ANHED 18:05
PROVIDERS: Emergency Provider Emergency Medicine; PCP Nurse Practitioner Adult Health
DX: L98.0 Pyogenic granuloma (principal); F90.9 Attention-deficit hyperactivity disorder, unspecified type; Z87.442 Personal history of urinary calculi
CPT/HCPCS: 99282

== ENCOUNTER → 2022-01-05 06:58 | Outpatient (CLI) | payer BC, SELFPAY ==
--- NOTE | ~2022-01-05 | XR_ITS ---
XR shoulder LT min 2V 01/05/2022 08:15 INDICATION: Left shoulder pain PROCEDURE: 4 views left shoulder COMPARISON: No prior studies for comparison. FINDINGS: Fracture, dislocation or subluxation is not identified. The soft tissues appear within norm al limits. No foreign bodies are identified. IMPRESSION: 1: NO ACUTE BONE OR JOINT ABNORMALITY IDENTIFIED. Reviewed, dictated and finalized at location A.
== END ==
DX: M35.9 Systemic involvement of connective tissue, unspecified (principal); Z79.899 Other long term (current) drug therapy; M25.512 Pain in left shoulder
CPT/HCPCS: 73030

== ENCOUNTER 2023-04-18 17:28 | Emergency (ER) | payer BC, SELFPAY ==
--- NOTE | 2023-04-18 17:44 | ED.ANIMALBIT ---
HPI - Animal Bite General Chief Complaint: Animal Bite Stated Complaint: dog bite Time Seen by Provider: 04/18/23 17:52 Source: patient Mode of arrival: ambulatory Limitations: no limitations History of Present Illness HPI narrative: Zee is a 42-year-old female patient presenting to the clinic today with complaints of a dog bite. She reports that this occurred 1 week ago. Has redness and mild swelling to the right index finger. States that her dog better a week ago when they were playing with a toy. Dog is up-to-date on its shots. Patient reports last tetanus was in 2018 Related Data Home Medications Medication Instructions Recorded Confirmed dextroamphetamine-amphetamine ER 20 mg PO DAILY 01/03/20 11/09/21 20 mg 24hr capsule,extend release levothyroxine 25 mcg tablet 25 mcg DAILY 01/03/20 11/09/21 hydroxychloroquine 200 mg tablet 200 mg PO BID 09/07/21 11/09/21 Allergies Allergy/AdvReac Type Severity Reaction Status Date / Time sulfamethizole Allergy Unknown Swelling Verified 11/09/21 15:19 of Lip/Tongue/Throat sulfamethoxazole Allergy Unknown LIPS SWELL Verified 11/09/21 15:19 trimethoprim Allergy Unknown Swelling Verified 11/09/21 15:19 of Lip/Tongue/Throat Review of Systems Review of Systems: Pertinent positives per HPI. Patient denies any fever, chills, rash, headache, visual changes, dizziness, cough, runny nose, sore throat, shortness of breath, chest pain, palpitations, nausea, vomiting, diarrhea, constipation, abdominal pain, or any urinary issues. PMFSH Past Medical History Medical History ADHD (attention deficit hyperactivity disorder) Hypothyroid Kidney stone induced hypertension Sciatica Seborrhiasis Vulvar cyst Surgical History Surgical History H/O removal of cyst History of abdominoplasty History of back surgery x2 History of breast augmentation History of hysterectomy History of tubal ligation Hx of section x3 Family History Family History Mother Family history of rheumatoid arthritis Social History Social History (Reviewed 04/18/23 @ 18:01 by KAI Kebede Smoking status: Never smoker Alcohol intake: never Substance use: never Substance use type: does not use Living arrangements: with family Gender identity (if verbalized by the patient): Female Spiritual care concerns: No Comments At the time of my signature, I reviewed and agree with the nursing past medical, surgical, social, and family history. There is no relevant family history pertinent to the patient complaint. Exam Narrative: General: Well-developed, well nourished, in no apparent distress Head: Normocephalic, atraumatic. Cardio: Regular rate and rhythm, s1 and s2 normal, no murmur appreciated. Resp: Clear to auscultation bilaterally, no rhonchi, rales, wheezing or rubs. Integumentary: [place], warm, and dry, close puncture wound with mild erythema, redness, and swelling of the distal right phalanx, mild tender to palpation without fluctuance Course Course Emergency Course: Portions of this record may have been created with voice recognition software. Level of Care: Express Care Visit Vital Signs Vital signs: Vital signs reviewed MDM - Animal Bite MDM Narrative Medical decision making narrative: At the time of visit patient is resting comfortably on the exam table. I suspect patient has a puncture wound infection. Prescription for Augmentin was sent to the pharmacy and supportive measures were discussed with the patient and she voiced understanding of the discharge instructions and agrees to treatment plan. Differential Diagnosis Differential diagnosis: Likely bite by animal and dog bite Discharge Plan Discharge Clinical Impression: Dog bite,
[2023-04-18 17:52] VITALS: BP 126/78; PULSE 88; RESP 18; TEMP 36.4; O2SAT 98
== END 2023-04-18 18:00 | disposition home or self-care (01) ==
PROVIDERS: Emergency Provider Nurse Practitioner Family
DX: S61.250A Open bite of right index finger without damage to nail, initial encounter (principal); L08.9 Local infection of the skin and subcutaneous tissue, unspecified; W54.0XXA Bitten by dog, initial encounter; F90.9 Attention-deficit hyperactivity disorder, unspecified type; E03.9 Hypothyroidism, unspecified
CPT/HCPCS: 99213; G0463

== ENCOUNTER 2024-07-19 12:48 | Emergency (ER) | payer BC, SELFPAY ==
--- OUTSIDE RECORDS SUMMARY | 2024-07-19 12:50 | XMS_ITS | Clinical Summary ---
Author Organization [facility] Address [address] [place] [address] Care Team Providers Care Water Gas Operator Name Role Phone Jorge Alberto Tanvir Johnsamanthadamian Primary Care Provider Source Comments [facility],non-owned Affiliates and Associated Physician Practices is amultiple site organization consisting of ambulatory clinics and hospital sitesin [place], [place], [place] and [place]. This disclosure is being madepursuant to the Care Everywhere program and may not contain all information available regarding this patient. Last updated 18.[facility] Allergies Active Allergy Reactions Criticality Noted Date Comments Sulfamethoxazole W-Trimethoprim Swelling Low 02/09/2015 Swelling of lips Morphine Nausea and/or Vomiting Low 02/09/2015 Medications * Be aware that medications may not be up to date on this document. Alwaysverify current medications with the patient. Medication Sig Dispensed Refills Start Date End Date Status Casanthranol-Docusate Sodium (STOOL SOFTENER/LAXATIVE PO) Take by mouth as needed Active ferrous sulfate 325 (65 FE) MG tablet Take 325 mg by mouth once daily Active oxyCODONE-acetaminophe n (PERCOCET) 5-325 MG tablet Take 1 Tab by mouth every 4 hours as needed 50 Tab 10/18/2016 Active diazePAM (VALIUM) 5 MG tablet Take 1 Tab by mouth 3 times daily as needed (Muscle Spasms) 30 Tab 10/18/2016 Active Social History Tobacco Use Types Packs/Day Years Used Date Smoking Tobacco: Never Smokeless Tobacco: Never Alcohol Use Standard Drinks/Week Comments Yes 0 (1 standard drink = 0.6 oz pur e alcohol) occasionally Sex and Gender Information Value Date Recorded Sex Assigned at Not on file Gender Identity Not on file Sexual Orientation Not on file Last Filed Vital Signs Vital Sign Reading Time Taken Comments Blood Pressure 105/63 10/18/2016 3:07 PM CDT Pulse 103 10/18/2016 3:07 PM CDT Temperature 37.2 C (99 F) 10/18/2016 3:07 PM CDT Respiratory Rate 18 10/18/2016 3:07 PM CDT Oxygen Saturation 100% 10/18/2016 3:07 PM CDT Inhaled Oxygen Concentration - - Weight 70.8 kg (156 lb) 10/16/2016 8:24 AM CDT Height 167.6 cm (5' 6 ) 10/16/2016 8:24 AM CDT Body Mass Index 25.18 10/16/2016 8:24 AM CDT Plan of Treatment Health Maintenance Due Date Last Done Comments LIPID TESTING 1981 MAMMOGRAM 1981 PAP SMEAR 1981 HIV SCREENING 1996 HEPATITIS C SCREENING 05/29/1999 DTAP/TDAP/TD VACCINES (1 - Tdap) 2000 HEPATITIS B VACCINE (1 of 3 - 19+ 3-dose series) 2000 COVID-19 VACCINE (1 - 2023-2 5 season) 2024 INFLUENZA VACCINE (#1) 2024 DEPRESSION SCREENING 06/03/2024 ZOSTER VACCINE (1 of 2) 2031 HIB VACCINE Aged Out No longer eligi ble based on patient's age to complete this topic HPV VACCINE Aged Out No longer eligi ble based on patient's age to complete this topic MENINGOCOCCAL (Group B) VACCINE Aged Out No longer eligible based on patient's age to complete this topic MENINGOCOCCAL VACCINE Aged Out No karl sosa eligible based on patient's age to complete this topic PNEUMOCOCCAL VACCINE Aged Out No long er eligible based on patient's age to complete this topic Medical Devices Implanted Type Area Physical Fitness Trainer Device Identifier Shelf Expiration Date Model / Serial / Lot Graft Bone Accell [id number] Dbm 10ml Ptty Implanted:Qty: 1 on 10/16/2016 by Curly Tran MD at [facility] Spine Lumbar [employer] 08/28/2017 [id number] / / [id number] Integra Shaped Strips 20cc Implanted:Qty: 1 on 10/16/2016 by Curly Tran MD at [facility] Lumbar Integra [employer] Barbara 04/30/201720 0 / / [id number] Cage 11x22 Implanted:Qty: 1 on 10/16/2016 by Curly Tran MD at [facility] Lumbar Integra [employer] Barbara [id number] / / Reduction Screw 6.5x40 Implanted:Qty: 4 on 10/16/2016 by Curly Tran MD at [facility] Lumbar [employer]gra [employer] Barbara [id number] / / Jasson 40mm Implanted:Qty: 2 on 10/16/2016 by Curly Tran MD at [facility] Lumbar [employer]gra [employer] Barbara [id number] / / Large Crossbar Implanted:Qty: 1 on 10/16/2016 by Curly Tran MD at [facility] Lumbar [employer]gra [employer] Barbara 12 / / Locking Caps Implanted:Qty: 4 on 10/16/2016 by Curly Tran MD at [facility] Lumbar [employer] Barbara / / Advance Directives Documents on File Type Date Recorded Patient Sales Training Representative Expl anation Adv Directive/Living Will/POA 10/12/2016 * Full Code (Latest Code Status on File) Date Activated Date Inactivated Comments 10/16/2016 12:43 PM 10/18/2016 5:15 PM Care Teams Water Gas Operator Relationship Specialty Start Date End Date Tanvir Azul DO PCP - General Family Medicine 10/12/16
--- OUTSIDE RECORDS SUMMARY | 2024-07-19 12:50 | XMS_ITS | Referral Summary ---
Author Organization [facility] Address [address] [place] [address] Care Team Providers Care Licensed Aircraft Maintenance Engineer Name Role Phone Jorge Alberto Tanvir Johnsamanthadamian Primary Care Provider Source Comments [facility],non-owned Affiliates and Associated Physician Practices is amultiple site organization consisting of ambulatory clinics and hospital sitesin [place], [place], [place] and [place]. This disclosure is being madepursuant to the Care Everywhere program and may not contain all information available regarding this patient. Last updated 18.[facility] Allergies Active Allergy Reactions Criticality Noted Date [...] Mass Index 25.18 10/16/2016 8:24 AM CDT Functional Status Functional Status Response Date of Assess ment Is person deaf or have serious hearing difficult y? No 10/16/2016 Is person blind or have serious difficulty seein g? No 10/16/2016 Does person have serious dif ficulty walking/climbing stairs? No 10/16/2016 Does person have difficulty dressing/bathing? No 10/16/2016 Does person have difficulty doing errands alone? No 10/16/2016 Cognitive Status Response Date of Assessm ent Does person have difficulty concentrating/remembering/making decisions? No 10/16/2016 Plan of Treatment Not on file Medical Devices Implanted Type Area Mechanical Facilities Technician Device Identifier Shelf Expiration Date Model / Serial / Lot Graft Bone Accell Evo3 Dbm 10ml Ptty Implanted:Qty: 1 on 10/16/2016 by Curly Tran MD at [facility] Spine Lumbar Integra Neurosciences 08/28/20175000- 0 / / [id number] Integra Shaped Strips 20cc Implanted:Qty: 1 on 10/16/2016 by Curly Tran MD at [facility] Spine Lumbar Integra Lifesciences Barbara 04/30/20170- 0 / / [id number] Cage 11x22 Implanted:Qty: 1 on 10/16/2016 by Curly Tran MD at [facility] Spine Lumbar Integra Lifesciences Barbara 14TA-211 / / Reduction Screw 6.5x40 Implanted:Qty: 4 on 10/16/2016 by Curly Tran MD at [facility] Lumbar Integra Lifesciences Barbara [id number] / / Jasson 40mm Implanted:Qty: 2 on 10/16/2016 by Curly Tran MD at [facility] Lumbar Integra Lifesciences Barbara 12-1040 / / Large Crossbar Implanted:Qty: 1 on 10/16/2016 by Curly Tran MD at [facility] Lumbar Integra [employer]iences Barbara 12-5 / / Locking Caps Implanted:Qty: 4 on 10/16/2016 by Curly Tran MD at [facility] Lumbar Integra Lifesciences Barbara 120 / / Advance Directives Documents on File Type Date Recorded Patient Senior Sales Engineer Expl anation Adv Directive/Living Will/POA 10/12/2016 * Full Code (Latest Code Status on File) Date Activated Date Inactivated Comments 10/16/2016 12:43 PM 10/18/2016 5:15 PM Care Teams Licensed Aircraft Maintenance Engineer Relationship Specialty Start Date End Date Tanvir Azul DO PCP - General Family Medicine 10/12/16
--- OUTSIDE RECORDS SUMMARY | 2024-07-19 12:50 | XMS_ITS | Clinical Summary ---
Author Organization [facility] Address [address] [place] [address] Care Team Providers Care Patient Care Representative Name Role Phone Tanvir Azul DO Primary Care Provider [phone] Medications LEVOTHYROXINE 25 MCG tabletIndication s:Hypothyroidism TAKE 1 TABLET BY MOUTH DAILY 90 tablet 1 9 Active CLOBETASOL 0.05 % external solutionIndicati ons:Healthcare maintenance APPLY AND GENTLY MASSAGE INTO AFFECTED TWICE DAILY 50 mL 9 Active Social History Tobacco Use Types Packs/Day Years Used Date Smoking Tobacco: Never Assessed Comments Unknown Sex and Gender Information Value Date Recorded Sex Assigned at Not on file Legal Sex Female 8:05 PM CDT Gender Identity Not on file Sexual Orientation Not on file Last Filed Vital Signs Vital Sign Reading Time Taken Comments Blood Pressure 121/78 03/31/2018 3:48 PM CDT Pulse 76 03/31/2018 3:48 PM CDT Temperature - - Respiratory Rate - - Oxygen Saturation - - Inhaled Oxygen Concentration - - Weight 68 kg (150 lb) 03/31/2018 3:48 PM CDT Height 165.1 cm (5' 5 ) 02/10/2015 3:46 PM CDT Body Mass Index 24.96 02/10/2015 3:46 PM CDT Plan of Treatment Health Maintenance Due Date Last Done Comments Cervical Cancer Screening Pa p Smear (Age 30 to 64) Every 3 Years 1981 Annual Physical 1984 Hepatitis C 1999 DTaP, Tdap and Td Vaccines ( 1 - Tdap) 2000 Hepatitis B Vaccines (1 of 3 - 19+ 3-dose series) 2000 Cervical Cancer Screening Pa p with HPV Testing (Age 30 to 64) Every 5 Years 2011 Cervical Cancer Screening with HPV 2011 Mammogram Screening 2021 COVID-19 Vaccine (2023-2 5 season) 2024 Influenza Adult (#1) 2024 HPV Vaccines Aged Out No longer eligi ble based on patient's age to complete this topic Meningococcal B Vaccine Aged Out No l onger eligible based on patient's age to complete this topic Meningococcal Vaccine Aged Out No karl sosa eligible based on patient's age to complete this topic Pneumococcal Vaccine: Pediat rics (0 to 5 Years) and At-Risk Patients (6 to 64 Years) Aged Out No longer eligible b ased on patient's age to complete this topic RSV Immunizations Under 20 Months Aged Out No longer eligible based on patient's age to complete this topic Care Teams Patient Care Representative Relationship Specialty Start Date End Date Tanvir Azul DO PCP - General 09/13/16
--- OUTSIDE RECORDS SUMMARY | 2024-07-19 12:50 | XMS_ITS | Patient Health Summary ---
Author Organization [facility] Address [address] [place] [address] Care Team Providers Care Plant Safety Leader Name Role Phone Jorge Alberto Tanvir Johnsamanthadamian Primary Care Provider Note from [facility],non-owned Affiliates and Associated Physician Practices is amultiple site organization consisting of ambulatory clinics and hospital sitesin [place], [place], [place] and [place]. This disclosure is being madepursuant to the Care Everywhere program and may not contain all information available regarding this patient. Last updated 18.[facility] Allergies * Sulfamethoxazole W-Trimethoprim(Swelling) -Low Criticality * Morphine(Nausea and/or Vomiting) -Low Criticality Medications * Be aware that medications may not be up to date on this document. Alwaysverify current medications with the patient. * Casanthranol-Docusate Sodium (STOOL SOFTENER/LAXATIVE PO) Take by mouth as needed * ferrous sulfate 325 (65 FE) MG tablet Take 325 mg by mouth once daily * oxyCODONE-acetaminophen (PERCOCET) 5-325 MG tablet(Started 10/18/2016) Take 1 Tab by mouth every 4 hours as needed * diazePAM (VALIUM) 5 MG tablet(Started 10/18/2016) Take 1 Tab by mouth 3 times daily as needed (Muscle Spasms) Social History Tobacco Use Types Packs/Day Years [...] Mass Index 25.18 10/16/2016 8:24 AM CDT Medical Devices Implanted Type Area Community Development Specialist Device Identifier Shelf Expiration Date Model / Serial / Lot Graft Bone Accell Evo3 Dbm 10ml Ptty Implanted:Qty: 1 on 10/16/2016 by Curly Tran MD at [facility] Lumbar Integra Neurosciences 08/28/2017- 0 / / [id number] Integra Shaped Strips 20cc Implanted:Qty: 1 on 10/16/2016 by Curly Tran MD at [facility] Lumbar Integra Lifesciences Barbara 04/30/2017-20 0 / / [id number] Cage 11x22 Implanted:Qty: 1 on 10/16/2016 by Curly Tran MD at [facility] Lumbar Integra Lif[employer]iences Barbara 14TA-211 / / Reduction Screw 6.5x40 Implanted:Qty: 4 on 10/16/2016 by Curly Tran MD at [facility] Lumbar Integra Lifesciences Barbara [id number] / / Jasson 40mm Implanted:Qty: 2 on 10/16/2016 by Curly Tran MD at [facility] Lumbar Integra Lifesciences [place] 120 / / Large Crossbar Implanted:Qty: 1 on 10/16/2016 by Curly Tran MD at [facility] Lumbar Integra Lifesciences Barbara / / Locking Caps Implanted:Qty: 4 on 10/16/2016 by Curly Tran MD at [facility] Spine Lumbar Buy With Fetch -9 / / Procedures * APHERESIS/TRANSFUSION ORDER(Performed 10/20/2016) * CARDIAC RHYTHM STRIP ORDER(Performed 10/20/2016) * IMAGING/RADIOLOGY/XRAY RESULTS ORDER(Performed 10/20/2016) * HGB HCT PANEL(Performed 10/18/2016) * HGB HCT PANEL(Performed 10/17/2016) * INITIATE RT BRONCHODILATOR PROTOCOL(Performed 10/16/2016) * XR LUMBAR SPINE IN OR 1VW(Performed 10/16/2016) Performed for Back pain, unspecified back location, unspecified back pain laterality, unspecified chronicity * XR LUMBAR SPINE IN OR 1VW(Performed 10/16/2016) Performed for Back pain, unspecified back location, unspecified back pain laterality, unspecified chronicity * XR LUMBAR SPINE IN OR 1VW(Performed 10/16/2016) Performed for Back pain, unspecified back location, unspecified back pain laterality, unspecified chronicity * DISCECTOMY / DECOMPRESSION FUSION SPINAL POSTERIOR(Performed 10/16/2016) Performed for Recurrent displacement of lumbar disc, DDD (degenerative disc disease), lumbar * TYPE + SCREEN PANEL(Performed 10/16/2016) * HGB HCT PANEL(Performed 10/16/2016) * BLOOD TYPE VERIFICATION(Performed 10/16/2016) * XR LUMBAR SPINE 2 OR 3VW(Performed 04/06/2015) * FL TONYA SURGERY(Performed 03/21/2015) * TYPE + SCREEN PANEL(Performed 03/21/2015) * HCG BETA BLOOD QUANTITATIVE(Performed 03/21/2015) * BASIC METABOLIC PANEL (CALCIUM TOTAL)(Performed 03/21/2015) * PT-INR [facility](Performed 03/21/2015) * PTT [facility](Performed 03/21/2015) * CBC W AUTO DIFFERENTIAL(Performed 03/21/2015) * CBC W AUTO DIFFERENTIAL(Performed 03/21/2015) * MRI LUMBAR SPINE WO CONTRAST(Performed 03/02/2015) * XR LUMBAR SPINE 2 OR 3VW(Performed 02/09/2015) Results * APHERESIS/TRANSFUSION ORDER (10/20/2016 12:41 PM CDT) Narrative 10/20/2016 12:41 PM CDT Ordered by an unspecified provider. Scanned Document NURSING - VITAL SIGN S AND ASSESSMENT * CARDIAC RHYTHM STRIP ORDER (10/20/2016 12:41 PM CDT) Narrative 10/20/2016 12:41 PM CDT Ordered by an unspecified provider. Scanned Document CARDIAC SERVICES ORD ERABLES * IMAGING/RADIOLOGY/XRAY RESULTS ORDER (10/20/2016 12:41 PM CDT) Anatomical Region Laterality Modality Other Narrative 10/20/2016 12:41 PM CDT Ordered by an unspecified provider. Scanned Document IMAGING * (ABNORMAL) HGB HCT PANEL (10/18/2016 5:51 AM CDT) Only the most recent of3 resultswithin the time period is included. [facility] Hemoglobin 9.3(L) 12.0 - 15.6 gm/dL 10/18/2016 6:22 AM CDT [facility] Hematocrit 28.4(L) 35.9 - 45.5 % 10/18/2016 6:22 AM CDT [facility] Blood BLOOD SPECIMEN / Unknown Lab Venipuncture / Unknown 10/18/2016 5:51 AM CDT 10/18/2016 6:10 AM CDT Curly Tran MD LAB - HEMATOLOGY ORD ERABLES [facility] [address] [place] [address] * XR SPINE LUMBAR SINGLE VIEW (10/16/2016 11:00 AM CDT) Only the most recent of3 resultswithin the time period is included. Anatomical Region Laterality Modality Spine Radiographic Angie ging 10/16/2016 11:3 1 AM CDT Narrative 10/16/2016 12:05 PM CDT LUMBAR SPINE PORTABLE INDICATION: Back pain Three portable lateral images of the lumbosacral spine are provided. There is posterior hardware at L5-S1 with an interbody device. Bony detail is otherwise limited. Edited by Christina Jarquin on 10/16/2016 11:50 AM Procedure Note Belia Alfredo MD - 10/16/2016 LUMBAR SPINE PORTABLE INDICATION: Back pain Three portable lateral images of the lumbosacral spine are provided. There is posterior hardware at L5-S1 with an interbody device. Bony detail is otherwise limited. Edited by Christina Jarquin on 10/16/2016 11:50 AM Curly Tran MD DIAGNOSTIC IMAGING O RDERABLES * TYPE + SCREEN PANEL (10/16/2016 8:48 AM CDT) Only the most recent of2 resultswithin the time period is included. ABO O 10/16/2016 10:29 AM CDT [facility] Rh Type Positive 10/16/2016 10:29 AM CDT [facility] Comment:History check perfor med. Retype required. Antibody Screen Negative 10/16/2016 10:29 AM CDT [facility] Blood Bank BLOOD SPECIMEN / Unknown Venipuncture / Unknown 10/16/2016 8:48 AM CDT 10/16/2016 9:01 AM CDT Curly Tran MD LAB - BLOOD BANK ORD ERABLES [facility] [address] [place] [address], [facility] [phone] * BLOOD TYPE VERIFICATION (10/16/2016 8:40 AM CDT) ABO O 10/16/2016 10:30 AM CDT [facility] Rh Type Positive 10/16/2016 10:30 AM CDT [facility] Blood Bank BLOOD SPECIMEN / Unknown Venipuncture / Unknown 10/16/2016 8:40 AM CDT 10/16/2016 9:16 AM CDT Curly Tran MD LAB - BLOOD BANK ORD ERABLES [facility] [address] [place], [place] [address] [phone] * XR LUMBAR SPINE 2 OR 3VW (04/06/2015 8:46 AM SUPERVISOR ELECTRON TUBE PROCESSING) Only the most recent of2 resultswithin the time period is included. Anatomical Region Laterality Modality Spine Other Impressions 04/06/2015 6:03 PM SUPERVISOR ELECTRON TUBE PROCESSING Impression: 1. Interval microdiscectomy at L5-S1. Report dictated by Estelle Ledesma M.D. (residential program director). This report was approved by Estelle Ledesma M.D. on 04/06/2015 4:[address] ASAD Soto M.D. have personally reviewed and interpreted this examination/study. This report was electronically signed by ASAD POMPA M.D. on 04/06/2015 6:03 PM . Narrative 04/06/2015 6:03 PM SUPERVISOR ELECTRON TUBE PROCESSING Exam: XR SPINE LUMBAR 2 OR 3 VW Date: 04/06/2015 8:46 AM History: follow up Comparison: Comparison is made with a prior study dated 02/09/2015 Findings: Alignment is normal. Vertebral body heights are normal without evidence of acute fracture. The patient is status post microdiscectomy at L5-S1. Mild intervertebral disc space narrowing is seen at L4-5 and L5-S1. Skin nayan are seen posteriorly. Procedure Note Asad Pompa MD - 08/31/2017 Exam: XR SPINE LUMBAR 2 OR 3 VW Date: 04/06/2015 8:46 AM History: follow up Comparison: Comparison is made with a prior study dated 02/09/2015 Findings: Alignment is normal. Vertebral body heights are normal without evidence ofacute fracture. The patient is status post microdiscectomy at L5-S1. Mildintervertebral disc space narrowing is seen at L4-5 and L5-S1. Skinstaples are seen posteriorly. IMPRESSION Impression: 1. Interval microdiscectomy at L5-S1. Report dictated by Estelle Ledesma M.D. (residential program director). This report was approved by Estelle Ledesma M.D. on 04/06/2015 4:[address] ASAD Soto M.D. have personally reviewed and interpreted thisexamination/study. This report was electronically signed by ASAD POMPA M.D. on04/06/2015 6:03 PM . Gabriel Mendez MD DIAGNOSTIC IMAGING O RDERABLES * FL TONYA SURGERY (03/21/2015 11:15 AM CDT) Anatomical Region Laterality Modality Other Narrative 03/21/2015 1:35 PM CDT Fluoroscopy was used for this exam. Please see the Operative report. Procedure Note Provider, MD Marii - 08/31/2017 Fluoroscopy was used for this exam. Please see the Operative report. Gabriel Mendez MD FLUOROSCOPY ORDERABL ES * PTT [facility] (03/21/2015 8:35 AM CDT) APTT 26.3 23.0 - 38.4 Seconds [facility] Comment:Suggested therapeuti c range for full dose I.V. heparin therapy for venous thromboembolism is 66.0-91.0 seconds. Blood specimen (specimen) BLOOD SPECIMEN / Unknown 03/21/2015 8:35 AM CDT 03/21/2015 8:39 AM CDT Narrative [facility] - 03/21/2015 9:03 AM CDT Is patient on Heparin, Argatroban or Dabigatran?->N Gabriel Mendez MD LAB - COAGULATION OR DERABLES [facility] [address] [phone] * PT-INR [facility] (03/21/2015 8:35 AM CDT) PT 12.9 12.1 - 14.8 Seconds [facility] INR 1.0 See Comment [facility] Comment: Suggested therapeutic range for low-intensity coumadin therapy for venous thromboembolism prophylaxis is an INR of 2.0-3.0. For high risk patients (Mitral Valve Prosthesis, Atrial Fibrillation, history of TIA/stroke), suggested prophylactic therapeutic range is an INR of 2.5-3.5. Blood specimen (specimen) BLOOD SPECIMEN / Unknown 03/21/2015 8:35 AM CDT 03/21/2015 8:39 AM CDT Narrative [facility] - 03/21/2015 9:03 AM CDT Is patient on Heparin, Argatroban or Dabigatran?->N Gabriel Mendez MD LAB - COAGULATION OR DERABLES [facility] [address] [phone] * CBC W AUTO DIFFERENTIAL (03/21/2015 8:35 AM CDT) Only the most recent of2 resultswithin the time period is included. WBC 5.4 3.5 - 10.5 10 3/uL [facility] RBC 4.49 3.90 - 5.00 10 6/uL [facility] Hemoglobin 13.0 12.0 - 15.5 g/dL [facility] Hematocrit 39.1 35.0 - 45.0 % [facility] MCV 87.1 81.0 - 97.0 fL [facility] MCH 29.0 28.0 - 34.0 pg [facility] MCHC 33.2 32.0 - 36.0 g/dL [facility] Platelet Count 249 150 - 400 10 3/uL [facility] RDW-SD 40.4 36.0 - 50.0 fL [facility] RDW-CV 12.6 11.2 - 14.8 % [facility] MPV 9.7 9.3 - 12.8 fL [facility] Neutrophils % 55.4 35.0 - 70.0 % [facility] Lymphocytes % 33.8 19.7 - 55.1 % [facility] Monocytes % 6.7 3.0 - 15.0 % [facility] Eosinophils % 3.5 0.0 - 6.0 % [facility] Basophil % 0.6 0.0 - 1.5 % [facility] Neutrophils Absolute 3.0 1.6 - 7.0 10 3/uL [facility] Lymphocyte Absolute 1.8 0.8 - 2.9 10 3/uL [facility] Monocytes Absolute 0.36 0.14 - 0.66 10 3/uL [facility] Eosinophils Absolute 0.19 0.00 - 0.22 10 3/uL [facility] Basophils Absolute 0.03 0.00 - 0.06 10 3/uL [facility] Immature Granulocytes % 0.2 0.0 - 1.0 % [facility] Blood specimen (specimen) BLOOD SPECIMEN / Unknown 03/21/2015 8:35 AM CDT 03/21/2015 8:39 AM CDT Alberto Houser DO LAB - HEMATOLOGY OR DERABLES [address] [phone] * BASIC METABOLIC PANEL (CALCIUM TOTAL) (03/21/2015 8:35 AM CDT) Pathologist [facility] BUN 11 7 - 26 mg/dL [facility] Creatinine 0.7 0.6 - 1.2 mg/dL [facility] Sodium 141 136 - 145 mmol/L [facility] Potassium 3.7 3.5 - 4.5 mmol/L [facility] Chloride 107 98 - 107 mmol/L [facility] CO2 25 22 - 29 mmol/L [facility] Glucose 99 70 - 115 mg/dL [facility] Calcium 9.1 8.4 - 10.2 mg/dL [facility] Anion Gap 13 8 - 18 [facility] BUN/Creatinine Ratio 16 7 - 23 [facility] Osmolality Calculated 277 270 - 300 mOsm/kg [facility] eGFR >60 >60 mL/min/1.7 3 m2 [facility] Blood specimen (specimen) BLOOD SPECIMEN / Unknown 03/21/2015 8:35 AM CDT 03/21/2015 8:39 AM CDT Gabriel Mendez MD LAB - CHEMISTRY [facility] [address] [phone] * HCG BETA BLOOD QUANTITATIVE (03/21/2015 8:35 AM CDT) Beta-hCG Total Quantitative <2 <5 mIU/mL [facility] Comment: HCG Numeric Result Interpretation: Non- Females: < 5 mIU/mL Post-Menopausal Females: < 7 mIU/mL Blood specimen (specimen) BLOOD SPECIMEN / Unknown 03/21/2015 8:35 AM CDT 03/21/2015 8:39 AM CDT Gabriel Mendez MD LAB - CHEMISTRY [facility] Organization Address City/State/ZIP Co de Phone Number [address] [phone] * MRI LUMBAR SPINE WO CONTRAST (03/02/2015 8:12 AM CDT) Anatomical Region Laterality Modality Spine Other Impressions 03/02/2015 8:54 AM CDT IMPRESSION: 1. Degenerative disc disease involving L3-4 through L5-S1 without significant central canal stenosis; however a predominantly left-sided disc extrusion at L5-S1 places mass effect on both the left L5 and S1 nerve roots. This report was approved by Adryan Ramsey M.D. on 03/02/2015 8:47 AM . I, Dr. OBIE BRINK M.D. have personally reviewed and interpreted this examination/study. This report was electronically signed by OBIE BRINK M.D. on 03/02/2015 8:54 AM . Narrative 03/02/2015 8:54 AM CDT EXAMINATION: Magnetic resonance imaging (MRI) of the lumbar spine without contrast HISTORY: Radiculopathy. TECHNIQUE: MRI of the lumbar spine was performed without contrast according to standard protocol. FINDINGS: Comparison is made with lumbar spine radiographs dated February 09, 2015. The alignment is normal. Vertebral bodies are normal in height without evidence of compression fractures. Marrow signal intensity is normal. The conus medullaris terminates at the level of L1-2 and the distal spinal cord signal intensity is normal. There is multilevel degenerative disc disease involving L3-4 through L5-S1 with disc desiccation, disc bulges and mild height loss, greatest at L5-S1. The soft tissues are normal. L1-L2: There is no disc bulge. There is no central canal stenosis. There is no facet osteoarthritis. There is no neural foraminal stenosis. L2-L3: There is mild disc bulge. There is no central canal stenosis. There is no facet osteoarthritis. There is no neural foraminal stenosis. L3-L4: There is diffuse disc bulge with tiny annular fissure (image 18 series 17). Mild ligamentum flavum hypertrophy is present. There is no central canal stenosis. There is no facet osteoarthritis. There is no neural foraminal stenosis. L4-L5: There is diffuse disc bulge with tiny annular fissure (image 23 series 7). Mild ligamentum flavum hypertrophy is present. There is no central canal stenosis. There is mild bilateral facet osteoarthritis. There is no neural foraminal stenosis. L5-S1: There is disc extrusion, asymmetric to the left, which results in moderate ipsilateral neural foraminal stenosis and touches the exiting L5 nerve root as well as occupying the left lateral recess of the S1 nerve root. There is no central canal stenosis. There is mild bilateral facet osteoarthritis. Procedure Note Obie Brink MD - 08/31/2017 EXAMINATION: Magnetic resonance imaging (MRI) of the lumbar spine withoutcontrast HISTORY: Radiculopathy. TECHNIQUE: MRI of the lumbar spine was performed without contrastaccording to standard protocol. FINDINGS: Comparison is made with lumbar spine radiographs dated 2014. The alignment is normal. Vertebral bodies are normal in height withoutevidence of compression fractures. Marrow signal intensity is normal. Theconus medullaris terminates at the level of L1-2 and the distal spinalcord signal intensity is normal. There is multilevel degenerative disc disease involving L3-4 through L5-S1 withdisc desiccation, disc bulges and mild height loss, greatest at L5-S1. Thesoft tissues are normal. L1-L2: There is no disc bulge. There is no central canal stenosis. Thereis no facet osteoarthritis. There is no neural foraminal stenosis. L2-L3: There is mild disc bulge. There is no central canal stenosis. Thereis no facet osteoarthritis. There is no neural foraminal stenosis. L3-L4: There is diffuse disc bulge with tiny annular fissure (image 18series 17). Mild ligamentum flavum hypertrophy is present. There is nocentral canal stenosis. There is no facet osteoarthritis. There is noneural foraminal stenosis. L4-L5: There is diffuse disc bulge with tiny annular fissure (image 23series 7). Mild ligamentum flavum hypertrophy is present. There is nocentral canal stenosis. There is mild bilateral facet osteoarthritis.There is no neural foraminal stenosis. L5-S1: There is disc extrusion, asymmetric to the left, which results inmoderate ipsilateral neural foraminal stenosis and touches the exiting [id number] root as well as occupying the left lateral recess of the S1 nerveroot. There is no central canal stenosis. There is mild bilateral facet osteoarthritis. IMPRESSION IMPRESSION: 1. Degenerative disc disease involving L3-4 through L5-S1 withoutsignificant central canal stenosis; however a predominantly left-sideddisc extrusion at L5-S1 places mass effect on both the left L5 and [id number] roots. This report was approved by Adryan Ramsey M.D. on 03/02/2015 8:47 AM . I, Dr. OBIE BRINK M.D. have personally reviewed and interpreted thisexamination/study. This report was electronically signed by OBIE BRINK M.D. on 03/02/20158:54 AM . Gabriel Mendez MD MR ORDERABLES Care Teams Plant Safety Leader Relationship Specialty Start Date End Date Tanvir Azul DO PCP - General Family Medicine 10/12/16
--- OUTSIDE RECORDS SUMMARY | 2024-07-19 12:51 | XMS_ITS | Clinical Summary ---
Author Organization [facility] Address [address] [place] [address] Care Team Providers Care Sales Promoter Name Role Phone Emily Brennan MD Primary Care Provider [phone] Allergies Active Allergy Reactions Criticality Noted Date Comments Morphine Nausea And Vomiting Low 02/09/2015 Sulfamethoxazole-Trimet hoprim Swelling Medium 02/09/2015 Swelling of lips Encounters Date Type Department Care Team Description 06/22/2024 3:45 PM BUSINESS OPERATIONS DIRECTOR Lab [facility] [address] [place] [address] from Last 3 Months Social History Tobacco Use Types Packs/Day Years Used Date Smoking Tobacco: Never Assessed Personal Safety Answer Date Recorded Getting School Help Needed Not on file 07/23 Comments No Sex and Gender Information Value Date Recorded Sex Assigned at Not on file Legal Sex Female 9:27 AM BUSINESS OPERATIONS DIRECTOR Gender Identity Not on file Sexual Orientation Not on file Last Filed Vital Signs Vital Sign Reading Time Taken Comments Blood Pressure 150/90 12/22/2021 6:45 PM CDT Pulse 82 12/22/2021 6:45 PM CDT Temperature 36.8 C (98.2 F) 12/22/2021 6:45 PM CDT Respiratory Rate 18 12/22/2021 6:45 PM CDT Oxygen Saturation 99% 12/22/2021 6:45 PM CDT Inhaled Oxygen Concentration - - Weight 67.8 kg (149 lb 7.6 oz) 12/22/2021 6:45 P M CDT Height 170.2 cm (5' 7 ) 12/22/2021 6:45 PM CDT Body Mass Index 23.41 12/22/2021 6:45 PM CDT Plan of Treatment Health Maintenance Due Date Last Done Comments Breast Cancer Screening-Mammogram 1981 Cervical Cancer Screening 1981 Depression Screening 1981 Hepatitis C Screening 1981 DTaP/Tdap/Td Vaccine (1 - Tdap) 1992 Varicella Vaccines (1 of 2 - 13+ 2-dose series) 1994 Hepatitis B Screening 1999 Regular Well Visit/Exam 18-64 1999 Influenza Vaccine (#1) 2024 HPV Vaccines Aged Out No longer eligi ble based on patient's age to complete this topic Pneumococcal vaccine <65 Aged Out No longer eligible based on patient's age to complete this topic Procedures Procedure Name Priority Date/Time Associated Diagnosis Comments FALLON-1 ANTIBODY Routine 06/22/2024 3:48 PM BUSINESS OPERATIONS DIRECTOR SCL 70 ANTIBODIES Routine 06/22/2024 3:4 8 PM BUSINESS OPERATIONS DIRECTOR DIRECTOR OF CASEWORK DEPARTMENT ANTIBODIES Routine 06/22/2024 3:48 PM BUSINESS OPERATIONS DIRECTOR DOE ANTIBODIES Routine 06/22/2024 3:48 PM BUSINESS OPERATIONS DIRECTOR KATEY ANTIBODY EVALUATION WITH REFLEX Routine 06/22/2024 3:48 PM BUSINESS OPERATIONS DIRECTOR ANTI-DOUBLE STRANDED DNA ANTIBODIES Routine 06/22/2024 3:48 PM BUSINESS OPERATIONS DIRECTOR EGFR Routine 06/22/2024 3:48 PM BUSINESS OPERATIONS DIRECTOR DIFFERENTIAL AUTO Routine 06/22/2024 3:4 8 PM BUSINESS OPERATIONS DIRECTOR RHEUMATOID FACTOR Routine 06/22/2024 3:4 8 PM BUSINESS OPERATIONS DIRECTOR CRP (ACUTE PHASE) Routine 06/22/2024 3:4 8 PM BUSINESS OPERATIONS DIRECTOR C3 COMPLEMENT Routine 06/22/2024 3:48 PM BUSINESS OPERATIONS DIRECTOR [place] SCREEN W/REFLEX KATEY+DSDNA Routine 06/22/2024 3:48 PM BUSINESS OPERATIONS DIRECTOR C4 COMPLEMENT Routine 06/22/2024 3:48 PM BUSINESS OPERATIONS DIRECTOR CREATINE KINASE (CK), TOTAL Routine 06/22/2024 3:48 PM BUSINESS OPERATIONS DIRECTOR ERYTHROCYTE SEDIMENTATION RATE Routine 06/22/2024 3:48 PM BUSINESS OPERATIONS DIRECTOR COMPREHENSIVE METABOLIC PANEL Routine 06/22/2024 3:48 PM BUSINESS OPERATIONS DIRECTOR CYCLIC CITRUL PEPTIDE ANTIBODY, IGG Routine 06/22/2024 3:48 PM BUSINESS OPERATIONS DIRECTOR CARDIOLIPIN ANTIBODY, IGG AND IGM Routine 06/22/2024 3:48 PM BUSINESS OPERATIONS DIRECTOR CBC WITH AUTO DIFFERENTIAL Routine 06/22/2024 3:48 PM BUSINESS OPERATIONS DIRECTOR SJOGRENS SYNDROME-A ANTIBODY Routine 06/22/2024 3:48 PM BUSINESS OPERATIONS DIRECTOR SJOGRENS SYNDROME-B ANTIBODY Routine 06/22/2024 3:48 PM BUSINESS OPERATIONS DIRECTOR from Last 3 Months Results * (ABNORMAL) [place] screen w/rflx KATEY+dsDNA (06/22/2024 3:48 PM BUSINESS OPERATIONS DIRECTOR) [place] Positive 1:160 Comment: Interpretive Data Normal range for [place] Qualitative Antibody = Negative. 1. [place] is performed using indirect immunofluorescence against HEp-2 cells 2. [place] titers are performed on all positive qualitative results. 3. A significantly positive [place] result is defined as a positive nuclear fluorescence at a titer of 1:80 or greater. 4. 15% of normal people above age 65 have significantly positive [place] results. 5% or less of normal people age 65 or under have significantly positive [place] results. Current interpretive data was last revised on 2020. Testing performed by: [facility], [address] [facility] [place] [address] [place], quant 1:160 titer [facility] Comment:Testing performed by : [facility], [address] [facility] [place] [address] [place], interp Speckled(A) [facility] Comment:Testing performed by : [facility], [address] [place]., [address] Blood 06/22/2024 3:48 PM BUSINESS OPERATIONS DIRECTOR 06/22/2024 11:01 PM BUSINESS OPERATIONS DIRECTOR Result Boy Brennan MD LAB BLOOD ORDERABLES Final Resul t Performing Organization Address [facility] de Phone Number [facility] [address] Department [place] [address] * Anti-double stranded DNA abs (06/22/2024 3:48 PM BUSINESS OPERATIONS DIRECTOR) dsDNA Ab 1.0 <=4.0 IUnits/mL Comment: Interpretive Data Negative: < or = 4 IUnits/mL Indeterminate: 5 - 9 IUnits/mL Positive: > or = 10 IUnits/mL Current interpretive data was last revised on 2016. Testing performed by: [facility], [address] [place] [address]., [id number] Blood 06/22/2024 3:48 PM BUSINESS OPERATIONS DIRECTOR 06/22/2024 11:01 PM BUSINESS OPERATIONS DIRECTOR Result Boy Brennan MD LAB BLOOD ORDERABLES Final Resul t Performing Organization Address [facility] de Phone Number [facility] [address] Department [place] [address] * SCL 70 abs (06/22/2024 3:48 PM BUSINESS OPERATIONS DIRECTOR) Anti-Scl70, IgG <0.2 <=0.9 Ab Index Comment: Interpretive Data Negative: < 1.0 Ab Index Positive: > or = 1.0 Ab Index Current interpretive data was last revised on 2016. Testing performed by: [facility], [address] [place]., [address] Blood 06/22/2024 3:48 PM BUSINESS OPERATIONS DIRECTOR 06/22/2024 11:01 PM BUSINESS OPERATIONS DIRECTOR us Emily Brennan MD LAB BLOOD ORDERABLES Final Resul t Performing Organization Address [facility] Co de Phone Number [facility] [address] Department of Laboratories [place], [place] [id number] * eGFR (06/22/2024 3:48 PM BUSINESS OPERATIONS DIRECTOR) Pathologist [facility] Department eGFR >90 >=60 mL/min/1. 73 m2 Comment: Interpretive Data Reference Interval Normal >/= 90 mL/min/1.73m2 Mildly decreased* 60 - 89 mL/min/1.73m2 Mildly to moderately decreased 45 - 59 mL/min/1.73m2 Moderately to severely decreased 30 - 44 mL/min/1.73m2 Severely decreased 15 - 29 mL/min/1.73m2 Kidney Failure < 15 mL/min/1.73m2 *Relative to young adult level Estimated glomerular filtration rate is determined by the 2020 CKD-EPI equation recommended by the National Kidney Foundation (A Unifying Approach to GFR Estimation: Recommendations of the NKF-ASK Task Force on Reassessing the Inclusion of Race in Diagnosing Kidney Disease, JASN 2020). The CKD-EPI equation should not be used for patients with unstable renal function and has not been validated in children and those over 70. Current interpretive data was last reviewed 2021. Blood 06/22/2024 3:48 PM BUSINESS OPERATIONS DIRECTOR 06/22/2024 7:02 PM BUSINESS OPERATIONS DIRECTOR us Emily Brennan MD LAB BLOOD ORDERABLES Final Resul t Performing Organization Address [facility] Co de Phone Number [facility] [address] Department of Laboratories [place], [place] [id number] * Differential, auto (06/22/2024 3:48 PM BUSINESS OPERATIONS DIRECTOR) Pathologist [facility] Department Neutrophil abs 2.7 1.5 - 6.5 K/cumm Imm gran abs 0.0 0.0 - 0.1 K/cumm [facility] Lymphocyte abs 2.0 0.8 - 3.3 K/cumm [facility] Monocyte abs 0.3 0.2 - 0.8 K/cumm [facility] Eosinophil abs 0.2 0.0 - 0.5 K/cumm [facility] Basophil abs 0.0 0.0 - 0.1 K/cumm [facility] Neutrophil pct 52.5 % [facility] Comment: Interpretive Data Percent cell count reference ranges are not reported, since discordance with absolute values may lead to misinterpretation of CBC data. Current Interpretive Data was last revised on 2017. Imm gran pct 0.2 % [facility] Comment: Interpretive Data Percent cell count reference ranges are not reported, since discordance with absolute values may lead to misinterpretation of CBC data. Current Interpretive Data was last revised on 2017. Lymphocyte pct 38.5 % [facility] Comment: Interpretive Data Percent cell count reference ranges are not reported, since discordance with absolute values may lead to misinterpretation of CBC data. Current Interpretive Data was last revised on 2017. Monocyte pct 5.1 % [facility] Comment: Interpretive Data Percent cell count reference ranges are not reported, since discordance with absolute values may lead to misinterpretation of CBC data. Current Interpretive Data was last revised on 2017. Eosinophil pct 3.1 % [facility] Comment: Interpretive Data Percent cell count reference ranges are not reported, since discordance with absolute values may lead to misinterpretation of CBC data. Current Interpretive Data was last revised on 2017. Basophil pct 0.6 % [facility] Comment: Interpretive Data Percent cell count reference ranges are not reported, since discordance with absolute values may lead to misinterpretation of CBC data. Current Interpretive Data was last revised on 2017. Blood 06/22/2024 3:48 PM BUSINESS OPERATIONS DIRECTOR 06/22/2024 7:03 PM BUSINESS OPERATIONS DIRECTOR us Emily Brennan MD LAB BLOOD ORDERABLES Final Resul t [facility] [address] Department [place] [address] * Nader abs (06/22/2024 3:48 PM BUSINESS OPERATIONS DIRECTOR) Anti-KATEY, SM <0.2 <=0.9 Ab Index Comment: Interpretive Data Negative: < 1.0 Ab Index Positive: > or = 1.0 Ab Index Current interpretive data was last revised on 2016. Testing performed by: [facility], [address] [place]., [address] Blood 06/22/2024 3:48 PM BUSINESS OPERATIONS DIRECTOR 06/22/2024 11:01 PM BUSINESS OPERATIONS DIRECTOR us Emily Brnenan MD LAB BLOOD ORDERABLES Final Resul t Performing Organization Address [facility] Co de Phone Number [facility] [address] [employer] [place], [place] [id number] * DIRECTOR OF CASEWORK DEPARTMENT abs (06/22/2024 3:48 PM BUSINESS OPERATIONS DIRECTOR) DIRECTOR OF CASEWORK DEPARTMENT ab 0.7 <=0.9 Ab Index Comment: Interpretive Data Negative: < 1.0 Ab Index Positive: > or = 1.0 Ab Index Current interpretive data was last revised on 2016. Testing performed by: [facility], [address] [facility], [place]., [address] Blood 06/22/2024 3:48 PM BUSINESS OPERATIONS DIRECTOR 06/22/2024 11:01 PM BUSINESS OPERATIONS DIRECTOR us Emily Brennan MD LAB BLOOD ORDERABLES Final Resul t Performing Organization Address [facility] Co de Phone Number [facility] [address] [facility] [place] [address] * C4 complement (06/22/2024 3:48 PM BUSINESS OPERATIONS DIRECTOR) Complement C4 25 10 - 40 mg/dL Blood 06/22/2024 3:48 PM BUSINESS OPERATIONS DIRECTOR 06/22/2024 7:02 PM BUSINESS OPERATIONS DIRECTOR us Emily Brennan MD LAB BLOOD ORDERABLES Final Resul t [facility] [address] [facility] [place] [address] * (ABNORMAL) KATEY ab eval w/reflex (06/22/2024 3:48 PM BUSINESS OPERATIONS DIRECTOR) KATEY ab Positive( A) Negative Comment: Interpretive Data Positive Screens will be reflexed to specific testing for Antibodies against the following antigens: Fallon-1 Ab, DIRECTOR OF CASEWORK DEPARTMENT Ab, Scl-70 Ab, Doe Ab, SS-A/Ro Ab, and SS- B/La Ab. Further testing for dsDNA, Centromere, or Ribosomal P antibodies is suggested in patient with a positive screen and negative specific antibodies. Current interpretive data was last revised on 2022. Testing performed by: [facility], [address] [place] [address]., [id number] Blood 06/22/2024 3:48 PM BUSINESS OPERATIONS DIRECTOR 06/22/2024 11:01 PM BUSINESS OPERATIONS DIRECTOR us Emily Brennan MD LAB BLOOD ORDERABLES Final Resul t Performing Organization Address [facility] Co de Phone Number [facility] [address] [facility] [place] [address] * Fallon-1 antibody (06/22/2024 3:48 PM BUSINESS OPERATIONS DIRECTOR) Fallon 1 Antibody, IgG <0.2 <=0.9 Ab Index Comment: Interpretive Data Negative: < 1.0 Ab Index Positive: > or = 1.0 Ab Index Current interpretive data was last revised on 2016. Testing performed by: [facility], [address] [place] [address]., [address] Blood 06/22/2024 3:48 PM BUSINESS OPERATIONS DIRECTOR 06/22/2024 11:01 PM BUSINESS OPERATIONS DIRECTOR us Emily Brennan MD LAB BLOOD ORDERABLES Final Resul t [facility] [address] Department [place] [address] * (ABNORMAL) CBC with auto differential (06/22/2024 3:48 PM BUSINESS OPERATIONS DIRECTOR) [facility] WBC 5.1 3.8 - 9.9 K/cumm Hgb 12.6 11.9 - 15.5 g/dL [facility] Hct 39.7 35.6 - 45.5 % [facility] Plt 255 150 - 400 K/cumm [facility] MPV 10.2 9.1 - 12.3 fL [facility] RBC 4.46 3.90 - 5.20 M/cumm [facility] MCV 89.0 81.3 - 96.4 fL [facility] MCH 28.3 27.1 - 33.3 pg [facility] MCHC 31.7(L) 32.3 - 35.7 g/dL [facility] RDW CV 13.0 11.1 - 14.9 % [facility] RDW SD 42.5 35.7 - 48.1 fL [facility] NRBC abs 0.00 0.00 - 0.01 K/cumm [facility] Blood 06/22/2024 3:48 PM BUSINESS OPERATIONS DIRECTOR 06/22/2024 7:03 PM BUSINESS OPERATIONS DIRECTOR us Emily Brennan MD LAB BLOOD ORDERABLES Final Resul t [facility] [address] Department [place] [address] * Cyclic citrul peptide antibody, IgG (06/22/2024 3:48 PM BUSINESS OPERATIONS DIRECTOR) [facility] CCP Ab <0.5 <=2.9 units/mL Comment: Interpretive data Negative: <3 units/mL Positive: > or equal to 3 units/mL Current interpretive data was last revised on 2016. Testing performed by: [facility], [address] [facility], [place]., [address] Blood 06/22/2024 3:48 PM BUSINESS OPERATIONS DIRECTOR 06/22/2024 10:58 PM BUSINESS OPERATIONS DIRECTOR us Emily Brennan MD LAB BLOOD ORDERABLES Final Resul t [facility] [address] Department [place] [address] * Cardiolipin antibody, IgG and IgM (06/22/2024 3:48 PM BUSINESS OPERATIONS DIRECTOR) Cardiolipin, IgG <1.6 <=19.9 GPL U/mL Comment: Interpretive Data Negative: <20 GPL U/mL Positive: > or = 20 GPL U/mL Anticardiolipin antibodies are associated with certain clinical events including unexplained arterial and venous thromboemboli, and unexplained morbidity. However, detection of low levels of anticardiolipin antibodies occurs in both healthy individuals and patients with co-morbidities not associated with the antiphospholipid antibody (APA) syndrome including inflammatory and infectious conditions. In order to improve specificity, the International Congress on Antiphospholipid Antibodies recommends ACL antibodies of IgG or IgM isotype present in medium or high titer (e.g. > 40 GPL, or >the 99th percentile), on two or more occasions, at least 12 weeks apart, to support a diagnosis of antiphospholipid syndrome. The cutoff for this assay was developed from data based on the 99th percentile. In addition, the International Congress on Antiphospholipid Antibodies does not recommend testing for IgA YULISSA. These results were obtained with the dineout 2200 System. Cardiolipin IgG values obtained with different manufacturers' assay methods may not be used interchangeably. Current interpretive data was last revised on 2016. Testing performed by: [facility], [address] [place]., [address] Cardiolipin, IgM 0.5 <=19.9 MPL U/mL [facility] Comment: Interpretive Data Negative: <20 MPL U/mL Positive: > or = 20 MPL U/mL Anticardiolipin antibodies are associated with certain clinical events including unexplained arterial and venous thromboemboli, and unexplained morbidity. However, detection of low levels of anticardiolipin antibodies occurs in both healthy individuals and patients with co-morbidities not associated with the antiphospholipid antibody (APA) syndrome including inflammatory and infectious conditions. In order to improve specificity, the International Congress on Antiphospholipid Antibodies recommends ACL antibodies of IgG or IgM isotype present in medium or high titer (e.g. > 40 MPL, or >the 99th percentile), on two or more occasions, at least 12 weeks apart, to support a diagnosis of antiphospholipid syndrome. The cutoff for this assay was developed from data based on the 99th percentile. In addition, the International Congress on Antiphospholipid Antibodies does not recommend testing for IgA YULISSA. The ACL IgM test can produce false positive results due to cross-reactivity with Rheumatoid factor, dsDNA or certain infectious disease antibodies. These results were obtained with the dineout 2200 System. Cardiolipin IgM values obtained with different manufacturers' assay methods may not be used interchangeably. Current interpretive data was last revised on 2016. Testing performed by: [facility], [address] [place] [address]., [id number] Blood 06/22/2024 3:48 PM BUSINESS OPERATIONS DIRECTOR 06/22/2024 11:01 PM BUSINESS OPERATIONS DIRECTOR us Emily Brennan MD LAB BLOOD ORDERABLES Final Resul t Performing Organization Address [facility]/ZIP Co de Phone Number [facility] [address] [place] [place] [address] * (ABNORMAL) Sjogren's syndrome B ab (06/22/2024 3:48 PM BUSINESS OPERATIONS DIRECTOR) Anti-KATEY, SS-B 1.2(H) <=0.9 Ab Index Comment: Interpretive Data Negative: < 1.0 Ab Index Positive: > or = 1.0 Ab Index Current interpretive data was last revised on 2016. Testing performed by: [facility], [address] [place] [address]., [address] Blood 06/22/2024 3:48 PM BUSINESS OPERATIONS DIRECTOR 06/22/2024 10:58 PM BUSINESS OPERATIONS DIRECTOR us Emily Brennan MD LAB BLOOD ORDERABLES Final Resul t Performing Organization Address City/[facility]/ZIP Co de Phone Number [facility] [address] [place] [address] * (ABNORMAL) Sjogren's syndrome A ab (06/22/2024 3:48 PM BUSINESS OPERATIONS DIRECTOR) Anti-KATEY, SS-A >8.0(H) <=0.9 Ab Index Comment: Interpretive Data Negative: < 1.0 Ab Index Positive: > or = 1.0 Ab Index Current interpretive data was last revised on 2016. Testing performed by: [facility], [address] [place]., [address] Blood 06/22/2024 3:48 PM BUSINESS OPERATIONS DIRECTOR 06/22/2024 10:58 PM BUSINESS OPERATIONS DIRECTOR us Emily Brennan MD LAB BLOOD ORDERABLES Final Resul t Performing Organization Address [facility] Co de Phone Number [facility] [address] [facility] [place] [address] * Erythrocyte sedimentation rate (06/22/2024 3:48 PM BUSINESS OPERATIONS DIRECTOR) Pathologist [facility] Erythrocyte sedimentation rate 13 1 - 20 mm/hr Blood 06/22/2024 3:48 PM BUSINESS OPERATIONS DIRECTOR 06/22/2024 7:03 PM BUSINESS OPERATIONS DIRECTOR Result Boy Brennan MD LAB BLOOD ORDERABLES Final Resul t Performing Organization Address [facility] Co de Phone Number [facility] [address] [facility] [place] [address] * Rheumatoid factor (06/22/2024 3:48 PM BUSINESS OPERATIONS DIRECTOR) Rheumatoid factor, quant <10 <=15 IUnits/mL Blood 06/22/2024 3:48 PM BUSINESS OPERATIONS DIRECTOR 06/22/2024 7:02 PM BUSINESS OPERATIONS DIRECTOR Result Boy Brennan MD LAB BLOOD ORDERABLES Final Resul t Performing Organization Address [facility] Co de Phone Number [facility] [address] Department [place] [address] * C3 complement (06/22/2024 3:48 PM BUSINESS OPERATIONS DIRECTOR) [facility] Complement C3 141 90 - 180 mg/dL Blood 06/22/2024 3:48 PM BUSINESS OPERATIONS DIRECTOR 06/22/2024 7:02 PM BUSINESS OPERATIONS DIRECTOR us Emily Brennan MD LAB BLOOD ORDERABLES Final Resul t Performing Organization Address City/[facility]/ZIP Co de Phone Number [facility] [address] Department [place] [address] * CRP (acute phase) (06/22/2024 3:48 PM BUSINESS OPERATIONS DIRECTOR) [facility] CRP <3.0 <=10.0 mg/L Blood 06/22/2024 3:48 PM BUSINESS OPERATIONS DIRECTOR 06/22/2024 7:02 PM BUSINESS OPERATIONS DIRECTOR us Emily Brennan MD LAB BLOOD ORDERABLES Final Resul t Performing Organization Address [facility] Co de Phone Number [facility] [address] Department [place] [address] * Creatine kinase (CK), total (06/22/2024 3:48 PM BUSINESS OPERATIONS DIRECTOR) Pathologist [facility] CK 41 30 - 200 Units/L Blood 06/22/2024 3:48 PM BUSINESS OPERATIONS DIRECTOR 06/22/2024 7:02 PM BUSINESS OPERATIONS DIRECTOR Result Pending Sale To [facility] us Emily Brennan MD LAB BLOOD ORDERABLES Final Resul t Performing Organization Address [facility] Co de Phone Number [facility] [address] [place] [address] * Comprehensive metabolic panel (06/22/2024 3:48 PM BUSINESS OPERATIONS DIRECTOR) [facility] Sodium 142 135 - 145 mmol/L Potassium, pl 3.4 3.3 - 4.9 mmol/L [facility] Chloride 103 97 - 110 mmol/L [facility] CO2 27 22 - 32 mmol/L [facility] Anion gap 12 2 - 15 mmol/L [facility] BUN 7 6 - 25 mg/dL [facility] Creatinine 0.76 0.60 - 1.10 mg/dL [facility] Glucose 77 70 - 199 mg/dL [facility] Comment: Interpretive Data Fasting glucose >/= 126 mg/dl is diagnostic for diabetes. Fasting is defined as no caloric intake for at least 8 hours. Fasting glucose between 100 mg/dl to 125 mg/dl is diagnostic of prediabetes. In a patient with classic symptoms of hyperglycemia or hyperglycemic crisis, a random glucose >/= 200 mg/dl is diagnostic for diabetes. In the absence of unequivocal hyperglycemia, results should be confirmed by repeat testing. The classification and Diagnosis of Diabetes Diabetes Care 202; 46: S19-S40. Current interpretive data was last revised 2022. Calcium 9.4 8.5 - 10.3 mg/dL [facility] Bilirubin, total 0.3 0.1 - 1.2 mg/dL [facility] Protein, pl 7.2 6.5 - 8.5 g/dL [facility] Albumin 4.6 3.5 - 5.0 g/dL [facility] Alk phos 90 40 - 130 Units/L [facility] ALT 16 7 - 45 Units/L [facility] AST 27 10 - 45 Units/L [facility] Blood 06/22/2024 3:48 PM BUSINESS OPERATIONS DIRECTOR 06/22/2024 7:02 PM BUSINESS OPERATIONS DIRECTOR us Emily Brennan MD LAB BLOOD ORDERABLES Final Resul t [facility] [address] Department [place] [address] from Last 3 Months Insurance [facility] CHOICE OOS ANTHEM ACCESS Care Teams Sales Promoter Relationship Specialty Start Date End Date Emily Brennan MD PCP - General Rheumatology 04/04/21
--- OUTSIDE RECORDS SUMMARY | 2024-07-19 12:51 | XMS_ITS | Referral Summary ---
Author Organization [facility] Address [address] [place] [address] Care Team Providers Care Yarn Conditioner Name Role Phone Emily Brennan MD Primary Care Provider Encounters Date Type Department Care Team Description 06/22/2024 3:45 PM CROCHET BEADER Lab [facility] [address] [place] [address] from Last 3 Months Allergies Active Allergy Reactions Criticality Noted Date Comments Morphine Nausea And Vomiting Low 02/09/2015 Sulfamethoxazole-Trimet hoprim Swelling Medium 02/09/2015 Swelling of lips Social History Tobacco Use Types Packs/Day Years Used Date Smoking Tobacco: Never Assessed Personal Safety Answer Date Recorded Getting School Help Needed Not on file 07/23 Comments No Sex and Gender Information Value Date Recorded Sex Assigned at Not on file Legal Sex Female 9:27 AM CROCHET BEADER Gender Identity Not on file Sexual Orientation [...] 12/22/2021 6:45 PM CDT Plan of Treatment Not on file Procedures Procedure Name Priority Date/Time Associated Diagnosis Comments FALLON-1 ANTIBODY Routine 06/22/2024 3:48 PM CROCHET BEADER SCL 70 ANTIBODIES Routine 06/22/2024 3:4 8 PM CROCHET BEADER SPLUNK ARCHITECT ANTIBODIES Routine 06/22/2024 3:48 PM CROCHET BEADER DOE ANTIBODIES Routine 06/22/2024 3:48 PM CROCHET BEADER KATEY ANTIBODY EVALUATION WITH REFLEX Routine 06/22/2024 3:48 PM CROCHET BEADER ANTI-DOUBLE STRANDED DNA ANTIBODIES Routine 06/22/2024 3:48 PM CROCHET BEADER EGFR Routine 06/22/2024 3:48 PM CROCHET BEADER DIFFERENTIAL AUTO Routine 06/22/2024 3:4 8 PM CROCHET BEADER RHEUMATOID FACTOR Routine 06/22/2024 3:4 8 PM CROCHET BEADER CRP (ACUTE PHASE) Routine 06/22/2024 3:4 8 PM CROCHET BEADER C3 COMPLEMENT Routine 06/22/2024 3:48 PM CROCHET BEADER [place] SCREEN W/REFLEX KATEY+DSDNA Routine 06/22/2024 3:48 PM CROCHET BEADER C4 COMPLEMENT Routine 06/22/2024 3:48 PM CROCHET BEADER CREATINE KINASE (CK), TOTAL Routine 06/22/2024 3:48 PM CROCHET BEADER ERYTHROCYTE SEDIMENTATION RATE Routine 06/22/2024 3:48 PM CROCHET BEADER COMPREHENSIVE METABOLIC PANEL Routine 06/22/2024 3:48 PM CROCHET BEADER CYCLIC CITRUL PEPTIDE ANTIBODY, IGG Routine 06/22/2024 3:48 PM CROCHET BEADER CARDIOLIPIN ANTIBODY, IGG AND IGM Routine 06/22/2024 3:48 PM CROCHET BEADER CBC WITH AUTO DIFFERENTIAL Routine 06/22/2024 3:48 PM CROCHET BEADER SJOGRENS SYNDROME-A ANTIBODY Routine 06/22/2024 3:48 PM CROCHET BEADER SJOGRENS SYNDROME-B ANTIBODY Routine 06/22/2024 3:48 PM CROCHET BEADER from Last 3 Months Results * (ABNORMAL) [place] screen w/rflx KATEY+dsDNA (06/22/2024 3:48 PM CROCHET BEADER) [place] Positive 1:160 Comment: Interpretive Data Normal [...] last revised on 2020. Testing performed by: [facility], [address] [place] [address]., [address] [place], quant 1:160 titer [facility] Comment:Testing performed by : [facility], [address] [place] [address]., [id number] [place], interp Speckled(A) [facility] Comment:Testing performed by : [facility], [address] [place] [address]., [id number] Blood 06/22/2024 3:48 PM CROCHET BEADER 06/22/2024 11:01 PM CROCHET BEADER us Emily Brennan MD LAB BLOOD ORDERABLES Final Resul t [facility] [address] Department of [employer] [place], [place] [id number] * Anti-double stranded DNA abs (06/22/2024 3:48 PM CROCHET BEADER) Pathologist [facility] dsDNA Ab 1.0 <=4.0 IUnits/mL Comment: Interpretive Data Negative: < or = 4 IUnits/mL Indeterminate: 5 - 9 IUnits/mL Positive: > or = 10 IUnits/mL Current interpretive data was last revised on 2016. Testing performed by: [facility], [address] [place]., [address] Blood 06/22/2024 3:48 PM CROCHET BEADER 06/22/2024 11:01 PM CROCHET BEADER us Emily Brennan MD LAB BLOOD ORDERABLES Final Resul t Performing Organization Address [facility] de Phone Number [facility] [address] Department [employer] [place], [place] [id number] * SCL 70 abs (06/22/2024 3:48 PM CROCHET BEADER) [facility] Anti-Scl70, IgG <0.2 <=0.9 Ab Index Comment: Interpretive Data Negative: < 1.0 Ab Index Positive: > or = 1.0 Ab Index Current interpretive data was last revised on 2016. Testing performed by: [facility], [address] [place]., [address] Blood 06/22/2024 3:48 PM CROCHET BEADER 06/22/2024 11:01 PM CROCHET BEADER us Emily Brennan MD LAB BLOOD ORDERABLES Final Resul t Performing Organization Address [facility] Co de Phone Number [facility] [address] [place] [place] [address] * eGFR (06/22/2024 3:48 PM CROCHET BEADER) [facility] eGFR >90 >=60 mL/min/1. 73 m2 Comment: [...] last reviewed 2021. Blood 06/22/2024 3:48 PM CROCHET BEADER 06/22/2024 7:02 PM CROCHET BEADER us Emily Brennan MD LAB BLOOD ORDERABLES Final Resul t [facility] [address] Department [place] [address] * Differential, auto (06/22/2024 3:48 PM CROCHET BEADER) Neutrophil abs 2.7 1.5 - 6.5 K/cumm Imm gran abs 0.0 0.0 - 0.1 K/cumm [facility] Lymphocyte abs 2.0 0.8 - 3.3 K/cumm [facility] Monocyte abs 0.3 0.2 - 0.8 K/cumm [facility] Eosinophil abs 0.2 0.0 - 0.5 K/cumm [facility] Basophil abs 0.0 0.0 - 0.1 K/cumm [facility] Neutrophil pct 52.5 % [facility] Comment: Interpretive Data Percent cell count reference ranges are not reported, since discordance with absolute values may lead to misinterpretation of CBC data. Current Interpretive Data was last revised on 2017. Imm gran pct 0.2 % [facility] Comment: Interpretive Data Percent cell count reference ranges are not reported, since discordance with absolute values may lead to misinterpretation of CBC data. Current Interpretive Data was last revised on 2017. Lymphocyte pct 38.5 % [facility] Comment: Interpretive Data Percent cell count reference ranges are not reported, since discordance with absolute values may lead to misinterpretation of CBC data. Current Interpretive Data was last revised on 2017. Monocyte pct 5.1 % [facility] Comment: Interpretive Data Percent cell count reference ranges are not reported, since discordance with absolute values may lead to misinterpretation of CBC data. Current Interpretive Data was last revised on 2017. Eosinophil pct 3.1 % [facility] Comment: Interpretive Data Percent cell count reference ranges are not reported, since discordance with absolute values may lead to misinterpretation of CBC data. Current Interpretive Data was last revised on 2017. Basophil pct 0.6 % [facility] Comment: Interpretive Data Percent cell count reference ranges are not reported, since discordance with absolute values may lead to misinterpretation of CBC data. Current Interpretive Data was last revised on 2017. Blood 06/22/2024 3:48 PM CROCHET BEADER 06/22/2024 7:03 PM CROCHET BEADER us Emily Brennan MD LAB BLOOD ORDERABLES Final Resul t Performing Organization Address City/State/[facility] Co de Phone Number [facility] [address] Department [place] [address] * Doe abs (06/22/2024 3:48 PM CROCHET BEADER) Anti-KATEY, SM <0.2 <=0.9 Ab Index Comment: Interpretive Data Negative: < 1.0 Ab Index Positive: > or = 1.0 Ab Index Current interpretive data was last revised on 2016. Testing performed by: [facility], [address] [place]., [address] Blood 06/22/2024 3:48 PM CROCHET BEADER 06/22/2024 11:01 PM CROCHET BEADER us Emily Brennan MD LAB BLOOD ORDERABLES Final Resul t [facility] [address] Department [place] [place] [address] * SPLUNK ARCHITECT abs (06/22/2024 3:48 PM CROCHET BEADER) SPLUNK ARCHITECT ab 0.7 <=0.9 Ab Index Comment: Interpretive Data Negative: < 1.0 Ab Index Positive: > or = 1.0 Ab Index Current interpretive data was last revised on 2016. Testing performed by: [facility], [address] [place]., [address] Blood 06/22/2024 3:48 PM CROCHET BEADER 06/22/2024 11:01 PM CROCHET BEADER us Emily Brennan MD LAB BLOOD ORDERABLES Final Resul t Performing Organization Address [facility] Co de Phone Number [facility] [address] Department [place] [place] [address] * C4 complement (06/22/2024 3:48 PM CROCHET BEADER) Complement C4 25 10 - 40 mg/dL Blood 06/22/2024 3:48 PM CROCHET BEADER 06/22/2024 7:02 PM CROCHET BEADER us Emily Brennan MD LAB BLOOD ORDERABLES Final Resul t Performing Organization Address [facility] de Phone Number [facility] [address] [place] [place] [address] * (ABNORMAL) KATEY ab eval w/reflex (06/22/2024 3:48 PM CROCHET BEADER) KATEY ab Positive( A) Negative Comment: Interpretive Data Positive Screens will be reflexed to specific testing for Antibodies against the following antigens: Fallon-1 Ab, SPLUNK ARCHITECT Ab, Scl-70 Ab, Doe Ab, SS-A/Ro Ab, and SS- B/La Ab. Further testing for dsDNA, Centromere, or Ribosomal P antibodies is suggested in patient with a positive screen and negative specific antibodies. Current interpretive data was last revised on 2022. Testing performed by: [facility], [address] [place]., [address] Blood 06/22/2024 3:48 PM CROCHET BEADER 06/22/2024 11:01 PM CROCHET BEADER us Emily Brennan MD LAB BLOOD ORDERABLES Final Resul t Performing Organization Address [facility] Co de Phone Number [facility] [address] Department [place] [place] [address] * Fallon-1 antibody (06/22/2024 3:48 PM CROCHET BEADER) Pathologist [facility] Fallon 1 Antibody, IgG <0.2 <=0.9 Ab Index Comment: Interpretive Data Negative: < 1.0 Ab Index Positive: > or = 1.0 Ab Index Current interpretive data was last revised on 2016. Testing performed by: [facility], [address] [place]., [address] Blood 06/22/2024 3:48 PM CROCHET BEADER 06/22/2024 11:01 PM CROCHET BEADER us Emily Brennan MD LAB BLOOD ORDERABLES Final Resul t Performing Organization Address [facility] de Phone Number [facility] [address] Department [place] [place] [address] * (ABNORMAL) CBC with auto differential (06/22/2024 3:48 PM CROCHET BEADER) [facility] WBC 5.1 3.8 - 9.9 K/cumm Hgb 12.6 11.9 - 15.5 g/dL [facility] Hct 39.7 35.6 - 45.5 % [facility] Plt 255 150 - 400 K/cumm [facility] MPV 10.2 9.1 - 12.3 fL [facility] RBC 4.46 3.90 - 5.20 M/cumm [facility] MCV 89.0 81.3 - 96.4 fL [facility] MCH 28.3 27.1 - 33.3 pg [facility] MCHC 31.7(L) 32.3 - 35.7 g/dL [facility] RDW CV 13.0 11.1 - 14.9 % [facility] RDW SD 42.5 35.7 - 48.1 fL [facility] NRBC abs 0.00 0.00 - 0.01 K/cumm [facility] Blood 06/22/2024 3:48 PM CROCHET BEADER 06/22/2024 7:03 PM CROCHET BEADER us Emily Brennan MD LAB BLOOD ORDERABLES Final Resul t Performing Organization Address City/[facility] Co de Phone Number [facility] [address] Department of [employer] [place], [place] [id number] * Cyclic citrul peptide antibody, IgG (06/22/2024 3:48 PM CROCHET BEADER) CCP Ab <0.5 <=2.9 units/mL Comment: Interpretive data Negative: <3 units/mL Positive: > or equal to 3 units/mL Current interpretive data was last revised on 2016. Testing performed by: [facility], [address] [place]., [address] Blood 06/22/2024 3:48 PM CROCHET BEADER 06/22/2024 10:58 PM CROCHET BEADER us Emily Brennan MD LAB BLOOD ORDERABLES Final Resul t [facility] [address] Department [place] [place] [address] * Cardiolipin antibody, IgG and IgM (06/22/2024 3:48 PM CROCHET BEADER) Cardiolipin, IgG <1.6 <=19.9 GPL U/mL Comment: [...] YULISSA. These results were obtained with the [employer] 2200 System. Cardiolipin IgG values obtained with different manufacturers' assay methods may not be used interchangeably. Current interpretive data was last revised on 2016. Testing performed by: [facility], [address] [facility]., [address] Cardiolipin, IgM 0.5 <=19.9 MPL U/mL [facility] Comment: Interpretive Data Negative: <20 MPL U/mL [...] antibodies. These results were obtained with the [employer] 2200 System. Cardiolipin IgM values obtained with different manufacturers' assay methods may not be used interchangeably. Current interpretive data was last revised on 2016. Testing performed by: [facility], [address] [place] [address]., [address] Blood 06/22/2024 3:48 PM CROCHET BEADER 06/22/2024 11:01 PM CROCHET BEADER us Emily Brennan MD LAB BLOOD ORDERABLES Final Resul t Performing Organization Address [facility] de Phone Number [facility] [address] [facility] [place] [place] [address] * (ABNORMAL) Sjogren's syndrome B ab (06/22/2024 3:48 PM CROCHET BEADER) Anti-KATEY, SS-B 1.2(H) <=0.9 Ab Index Comment: Interpretive Data Negative: < 1.0 Ab Index Positive: > or = 1.0 Ab Index Current interpretive data was last revised on 2016. Testing performed by: [facility], [address] [place] [address]., [address] Blood 06/22/2024 3:48 PM CROCHET BEADER 06/22/2024 10:58 PM CROCHET BEADER us Emily Brennan MD LAB BLOOD ORDERABLES Final Resul t Performing Organization Address [facility] de Phone Number [facility] [address] [facility] [place] [address] * (ABNORMAL) Sjogren's syndrome A ab (06/22/2024 3:48 PM CROCHET BEADER) Anti-KATEY, SS-A >8.0(H) <=0.9 Ab Index Comment: Interpretive Data Negative: < 1.0 Ab Index Positive: > or = 1.0 Ab Index Current interpretive data was last revised on 2016. Testing performed by: [facility], [address] [place] [address]., [address] Blood 06/22/2024 3:48 PM CROCHET BEADER 06/22/2024 10:58 PM CROCHET BEADER Result Boy Brennan MD LAB BLOOD ORDERABLES Final Resul t Performing Organization Address City/[facility] Co de Phone Number [facility] [address] [facility] [place] [place] [address] * Erythrocyte sedimentation rate (06/22/2024 3:48 PM CROCHET BEADER) Erythrocyte sedimentation rate 13 1 - 20 mm/hr Blood 06/22/2024 3:48 PM CROCHET BEADER 06/22/2024 7:03 PM CROCHET BEADER Result Boy Brennan MD LAB BLOOD ORDERABLES Final Resul t Performing Organization Address [facility] de Phone Number [facility] [address] [facility] [place] [place] [address] * Rheumatoid factor (06/22/2024 3:48 PM CROCHET BEADER) Rheumatoid factor, quant <10 <=15 IUnits/mL Blood 06/22/2024 3:48 PM CROCHET BEADER 06/22/2024 7:02 PM CROCHET BEADER Result Boy Brennan MD LAB BLOOD ORDERABLES Final Resul t Performing Organization Address [facility] Co de Phone Number [facility] [address] [facility] [place] [place] [address] * C3 complement (06/22/2024 3:48 PM CROCHET BEADER) Complement C3 141 90 - 180 mg/dL Blood 06/22/2024 3:48 PM CROCHET BEADER 06/22/2024 7:02 PM CROCHET BEADER Result Boy Brennan MD LAB BLOOD ORDERABLES Final Resul t Performing Organization Address [facility] Co de Phone Number [facility] [address] [facility] [place] [place] [address] * CRP (acute phase) (06/22/2024 3:48 PM CROCHET BEADER) [facility] CRP <3.0 <=10.0 mg/L Blood 06/22/2024 3:48 PM CROCHET BEADER 06/22/2024 7:02 PM CROCHET BEADER us Emily Brennan MD LAB BLOOD ORDERABLES Final Resul t Performing Organization Address [facility] Co de Phone Number [facility] [address] Department [place] [place] [address] * Creatine kinase (CK), total (06/22/2024 3:48 PM CROCHET BEADER) [facility] CK 41 30 - 200 Units/L Blood 06/22/2024 3:48 PM CROCHET BEADER 06/22/2024 7:02 PM CROCHET BEADER us Emily Brennan MD LAB BLOOD ORDERABLES Final Resul t Performing Organization Address [facility] de Phone Number [facility] [address] [employer] [place] [place] [address] * Comprehensive metabolic panel (06/22/2024 3:48 PM CROCHET BEADER) [facility] Sodium 142 135 - 145 mmol/L Potassium, pl 3.4 3.3 - 4.9 mmol/L [facility] Chloride 103 97 - 110 mmol/L [facility] CO2 27 22 - 32 mmol/L [facility] Anion gap 12 2 - 15 mmol/L [facility] BUN 7 6 - 25 mg/dL [facility] Creatinine 0.76 0.60 - 1.10 mg/dL [facility] Glucose 77 70 - 199 mg/dL [facility] Comment: Interpretive Data Fasting glucose >/= 126 [...] 2022. Calcium 9.4 8.5 - 10.3 mg/dL [facility] Bilirubin, total 0.3 0.1 - 1.2 mg/dL [facility] Protein, pl 7.2 6.5 - 8.5 g/dL [facility] Albumin 4.6 3.5 - 5.0 g/dL [facility] Alk phos 90 40 - 130 Units/L [facility] ALT 16 7 - 45 Units/L [facility] AST 27 10 - 45 Units/L [facility] Blood 06/22/2024 3:48 PM CROCHET BEADER 06/22/2024 7:02 PM CROCHET BEADER us Emily Brennan MD LAB BLOOD ORDERABLES Final Resul t [facility] [address] Department [place] [address] from Last 3 Months Insurance [facility] CHOICE OOS Member Subscriber Plan / Payer (Ef fective 2021-Present) Name:Zee Doe Relation to Subscriber:Self Name:Zee Doe Payer ID:[id number] (IC) Type:[employer] Address: [facility] [id number] [address] ACCESS [address] [place] [id number] Care Teams Yarn Conditioner Relationship Specialty Start Date End Date Emily Brennan MD PCP - General Rheumatology 04/04/21
--- OUTSIDE RECORDS SUMMARY | 2024-07-19 12:51 | XMS_ITS | Clinical Summary ---
Author Organization [facility] Address [address] [place] [phone] Phone Care Team Providers Care Guest Room Inspector Name Role Phone Unavailable Primary Care Provider Unavailabl e Allergies Active Allergy Reactions Criticality Noted Date Comments Sulfamethoxazole-Trimethoprim Swelling Low 2020 Medications amphetamine-dext roamphetamine (ADDERALL XR) 20 mg Extended Release 24 hour capsule Take 20 mg by mouth daily. Active levothyroxine 25 mcg tablet Take 25 mcg by mouth daily in the morning. 09/26/2018 Active dextromethorphan -guaiFENesin (ROBITUSSIN DM) 10-100 mg/5 mL solution Take 10 mL by mouth every 4 hours as needed for Cough. 250 mL 12/09/2020 1:21 PM CDT 12/09/2020 Active hydroxychloroqui ne sulfate (HYDROXYCHLOROQU INE ORAL) Take by mouth. Active Active Problems Problem Noted Date Diagnosed Date ADHD 12/08/2020 2019 novel coronavirus disease (COVID-19) 2020 Hypothyroidism 11/06/2018 Social History Tobacco Use Types Packs/Day Years Used Date Smoking Tobacco: Never Alcohol Use Standard Drinks/Week Comments Not Currently 0 (1 standard drink = 0.6 oz pur e alcohol) Comments No Sex and Gender Information Value Date Recorded Sex Assigned at Not on file Legal Sex Female 2:46 PM CDT Gender Identity Not on file Sexual Orientation Not on file Last Filed Vital Signs Vital Sign Reading Time Taken Comments Blood Pressure 121/61 11/08/2021 11:56 PM CDT Pulse 65 11/08/2021 9:23 PM CDT Temperature 36.9 C (98.4 F) 11/08/2021 11:56 PM CDT Respiratory Rate 14 11/08/2021 11:56 PM CDT Oxygen Saturation 100% 11/08/2021 11:56 PM CDT Inhaled Oxygen Concentration - - Weight 70.3 kg (155 lb) 11/08/2021 3:45 PM CDT Height 167.6 cm (5' 6 ) 11/08/2021 3:45 PM CDT Body Mass Index 25.02 11/08/2021 3:45 PM CDT Plan of Treatment Health Maintenance Due Date Last Done Comments DTAP/TDAP/TD VACCINES (1 - Tdap) 2000 HEPATITIS B VACCINES (1 of 3 - 19+ 3-dose series) 2000 CERVICAL CANCER SCREENING 2011 BREAST CANCER SCREENING 2021 INFLUENZA VACCINE (#1) 2024 HPV VACCINES Aged Out No longer eligi ble based on patient's age to complete this topic Insurance [employer] BLUE ACCESS/TRUE BLUE PPO RX [employer] Member Subscriber Plan / Payer (Ef fective 2020-Present) Name:Zee Doe Relation to Subscriber:Self Name:Zee Doe Subscriber ID:Not on file Payer ID:Not on file Type:RX Commercial Address: [place], [place] RX [employer] (INTERNAL) [facility] Advance Directives For more information, please contact: [phone] * Full Code (Latest Code Status on File) Date Activated Date Inactivated Comments 12/08/2020 8:38 AM 12/09/2020 3:50 PM
[2024-07-19 13:08] VITALS: BP 109/74; PULSE 72; RESP 18; TEMP 36.3; O2SAT 100
[2024-07-19 13:17] LABS: EDUAAPPEAR Cloudy; EDUABILI 1+ (Negative); EDUABLOOD Negative (Negative); EDUACOLOR1 Yellow; EDUAGLUCOSE Negative (Negative); EDUAKETONE Negative (Negative); EDUALEUKO Negative (Negative); EDUANITRATE Negative (Negative); EDUAPROTEIN 1+ (Negative); EDUAUROBILI 0.2
--- NOTE | 2024-07-19 14:17 | ED.FEMALEGU ---
HPI - Female Genitourinary General Chief complaint: Urogenital-Female Stated complaint: possible UTI Source: patient Mode of arrival: ambulatory Limitations: no limitations History of Present Illness HPI Narrative: 44-year-old female presents to [facility] with complaints of foul-smelling urine and urinary urgency for the past week. Patient reports that she has a history of UTIs and symptoms feel similar. Patient denies vaginal discharge, vaginal itching or concern for STDs. Patient reports that she has a vaginal yeast infection and BV in the past and her symptoms feel different this time. MD elicited complaint: UTI and other (Urgency, odorous urine) Onset (ago): week(s) (1) Vaginal discharge: none Vaginal bleeding: none Urinary symptoms: Urgency and Foul Smelling Urine Exacerbating factors: none Relieving factors: none Associated symptoms: denies other symptoms Treatment prior to arrival: none Related Data Home Medications ?Medication ?Instructions ?Recorded ?Confirmed ?Last Taken ?Type levothyroxine 25 mcg tablet 25 mcg DAILY 01/03/20 11/09/21 Unknown History escitalopram oxalate 10 mg tablet mg 07/19/24 Unknown History estradiol 1 mg tablet mg 07/19/24 Unknown History rosuvastatin 5 mg tablet mg 07/19/24 Unknown History Allergies Allergy/AdvReac Type Severity Reaction Status Date / Time sulfamethizole Allergy Unknown Swelling Verified 07/19/24 14:00 of Lip/Tongue/Throat sulfamethoxazole Allergy Unknown LIPS SWELL Verified 07/19/24 14:00 trimethoprim Allergy Unknown Swelling Verified 07/19/24 14:00 of Lip/Tongue/Throat Review of Systems Constitutional: Constitutional: Denies chills and Denies fatigue ENT: Denies vertigo, Denies dizziness, Denies nasal congestion and Denies sore throat Cardiovascular: Cardiovascular: Denies chest pain Respiratory: Respiratory: Denies cough, Denies dyspnea and Denies wheezing Gastrointestinal: Gastrointestinal: Denies diarrhea, Denies nausea and Denies vomiting Genitourinary: Genitourinary: Denies abnormal vaginal bleeding, Denies hematuria, Denies nocturia, Denies genital lesions, Denies dysuria, Denies flank pain, Denies urinary incontinence and Denies vaginal discharge Comments: Urinary urgency, foul-smelling urine Musculoskeletal: Musculoskeletal: Denies arthralgias and Denies joint swelling Integumentary/Breasts: Skin/Breast: Denies rash Neurologic: Denies syncope and Denies headache(s) [facility] Past Medical History Medical History Hypothyroid ADHD (attention deficit hyperactivity disorder) Sciatica Seborrhiasis Vulvar cyst Kidney stone induced hypertension Surgical History Surgical History H/O removal of cyst History of back surgery x2 Hx of section x3 History of hysterectomy History of breast augmentation History of tubal ligation History of abdominoplasty Family History Family History Mother Family history of rheumatoid arthritis Social History Social History Smoking status: Never smoker Alcohol intake: never Substance use: never Substance use type: does not use Living arrangements: with family Gender identity (if verbalized by the patient): Female Spiritual care concerns: No Comments At time of signature, I agree with nursing past medical, surgical, social and family history. There is no relevant family history pertinent to the presenting complaint. Exam Const: General: healthy appearing and no acute distress Nutritional Appearance: well nourished Orientation/consciousness: patient oriented x3 Limitations: no limitations HENMT: Head: normal to inspection Eyes: Conjunctivae: conjunctivae normal Neck: Neck: normal visual inspection Resp: Effort & Inspection: normal respiratory effort and not labored Auscultation: clear to auscultation bilaterally, no crackles, no rales, no rhonchi and no wheezes Cardio: Rate: regular rate Rhythm: regular rhythm Heart sounds: no murmurs GI: Inspection: non-distended GI Palp: Yes Soft to palpation, No Tenderness to palpation present (GI) and No Guarding due to palpation present (GI) : General: Yes bladder normal to palpation and Yes no CVA tenderness Back/Spine/Pelvis: Back: no CVA tenderness Skin: General skin exam: normal color Neuro: General: patient oriented x3 and moves all extremities Speech: normal speech Gait exam (Neuro): Normal gait present Extrem: General: normal to inspection Psych: Affect: normal affect Attitude: cooperative Course Course Level of Care: Express Care Visit Vital Signs Vital signs: Vital Signs Temperature 36.3 C L 07/19/24 13:08 Pulse Rate 72 07/19/24 13:08 Respiratory Rate 18 07/19/24 13:08 Blood Pressure 109/74 07/19/24 13:08 Pulse Oximetry 100 07/19/24 13:08 Oxygen Delivery Room Air 07/19/24 13:08 Temperature 36.3 C L 07/19/24 13:08 Pulse Rate 72 07/19/24 13:08 Respiratory Rate 18 07/19/24 13:08 Blood Pressure 109/74 07/19/24 13:08 Pulse Oximetry 100 07/19/24 13:08 Oxygen Delivery Room Air 07/19/24 13:08 MDM - Female Genitourinary MDM Narrative Medical decision making narrative: Patient denies concern for STDs at this time. Will send urine off for urine culture. Will treat patient with short course antibiotics pending urine culture results. Patient agrees to follow-up with telecommunications linesworker or primary care provider if symptoms not improved. Differential Diagnosis Differential diagnosis: Likely bacterial vaginosis, cervicitis and vaginitis Lab Data Labs: Lab Results 07/19/24 Range/Units 13:15 POC Urine Color Yellow POC Urine Clarity Cloudy POC Urine pH 6.0 POC Ur Specif [place] 1.030 POC Urine Protein 1+ (Negative) POC Ur Glucose (UA) Negative (Negative) POC Urine Ketones Negative (Negative) POC Urine Blood Negative (Negative) POC Urine Nitrite Negative (Negative) POC Urine Bilirubin 1+ (Negative) POC Urine Urobilinogen 0.2 POC U Leukocyte Esteras Negative (Negative) Critical Care Time Critical Care Time Critical Care Time: No Discharge Plan Discharge Clinical Impression: Urinary tract infection Qualifiers: Urinary tract infection type: acute cystitis Hematuria presence: without hematuria Qualified Code(s): N30.00 - Acute cystitis without hematuria Patient Disposition: Home, Self-Care Condition: Stable Instructions: Antibiotic Form, Urinary Tract Infection in Women (ED) Patient Language: Malagasy Prescriptions: New nitrofurantoin monohyd/m-cryst [Macrobid] 100 mg capsule 100 mg PO Q12H 3 Days Qty: 6 0RF Rx Instructions: must administer with a meal/food No Action estradiol 1 mg tablet escitalopram oxalate 10 mg tablet rosuvastatin 5 mg tablet levothyroxine 25 mcg tablet 25 mcg DAILY ondansetron 4 mg tablet,disintegrating 4 mg PO Q8H Qty: 14 0RF Follow-up/Referrals: PHYSICIAN,WASTE DISPOSAL ATTENDANT [Primary Care Provider] - Time of Disposition: 14:21
== END 2024-07-19 14:26 | disposition home or self-care (01) ==
PROVIDERS: Emergency Provider Nurse Practitioner Family
DX: N30.00 Acute cystitis without hematuria (principal); B96.20 Unspecified Escherichia coli [E. coli] as the cause of diseases classified elsewhere; E03.9 Hypothyroidism, unspecified
CPT/HCPCS: 81003; 87086; 87186; 99213; G0463